=== PATIENT | female | born 1940 | race Caucasian/White ===

== ENCOUNTER → 2023-01-14 15:38 | Outpatient (BNVA) | payer OTHER, SELFPAY | PROVIDERS: PCP Pediatrics; Visit Provider Neurological Surgery ==

== ENCOUNTER → 2023-02-04 15:20 | Outpatient (BNVA) | payer OTHER, SELFPAY | PROVIDERS: PCP Pediatrics; Visit Provider Neurological Surgery ==

== ENCOUNTER 2024-02-18 15:16 | Outpatient (AMB) | payer OTHER, SELFPAY ==
--- NOTE | 2024-02-18 15:24 | A.OFFPC_ITS ---
Vital Signs 02/18/24 15:35 BMI Reason not done Patient refused/unable BP 130/68 Blood Pressure Location Lt brachial Position Sitting Respiration 12 Pulse 81 Pulse Source Pulse Oximeter Temp 98.1 F Temp Source Oral Pulse Oximetry (%) 95 Oxygen Delivery Method Room Air Intake Visit Reasons: Establish Care transfer from [facility] Allergies amiodarone Allergy (Severe, Verified 02/18/24 15:26) throat swelling latex [Latex] Allergy (Mild, Verified 02/04/23 15:34) HIVES,ITCHING hydromorphone [From Dilaudid] Adverse Reaction (Mild, Verified 02/04/23 15:34) DIZZY,NAUSEA,SWEATING,AGITATION nitroglycerin [Nitroglycerin] Adverse Reaction (Mild, Verified 02/04/23 15:34) LOW BP,DIZZY Tobacco use date assessed: 02/18/24 Fall risk assessment: No Falls in past year Last assessed Fall Risk: 02/18/24 Dental Screening Dental Screen Date: 02/18/24 Did you have a dental visit in the last 12 months?: Yes Did you have a dental problem in the last 6 months where you did not have access to dental care?: No Was dental information given to patient?: Patient has dentist HPI HPI Comments History of Present Illness Details This is an 83-year-old female with a past medical history of chronic pain, anxiety disorder, papillary thyroid carcinoma, hypothyroidism, insomnia, paroxysmal atrial fibrillation and depression presenting for transfer of care from [facility] primary [facility]. Her last PCP was Carolina Coronel PA-C. Pulmonary: The patient had COVID-19 at the end of October 2023. She reports ongoing respiratory symptoms since that time. She was seen by my colleague via telehealth on 11/04/2023. She was treated with Augmentin and albuterol as needed. She continued with symptoms. Patient had CT enterography on 11/17/2023 which showed scattered atelectasis with partial collapse of the right middle lobe of the lung. Follow up chest CT was ordered and completed 12/15/2023. This showed persistent atelectasis in the right middle lobe and associated volume loss and [id number] atelectasis and trace atelectasis of the lingula. No central obstructing lesion was apparent. There are also a few pulmonary nodules measuring up to 4 mm. Patient has never been a smoker, but she was exposed to secondhand smoke for much of her childhood and adolescence. She endorsed persistent cough that is productive sometimes and sometimes dry at her follow up visit on 12/17/2023 at [facility]. She denied hemoptysis. She endorsed shortness of breath associated with her cough, but she also notes that she has had a heart murmur for her entire life. She denied chest pain, syncope or dizziness. She reported feeling better than she did in October in terms of recovery from COVID. She reported no pets at home or significant exposures for pulmonary illness. I referred her to pulmonology urgently. In the [facility] records it is noted that she hung up on the person scheduling the call declining the initial appointment. Patient says she did this because of the appointment being scheduled too far off in early January. An appointment was then scheduled for yesterday, but she did not go to it. She says that she was going to see me today so she decided not to go to the [employer]. Patient says she did not have tuberculosis screening test that was ordered at [facility]. She continues to say that she is improving in terms of cough and shortness of breath. Chronic pain-she has a history of 3 back surgeries. She was previously on a co ntrolled substance contract with Dr. Ascencio at [facility]. Her PCP at [facility] restarted her medication. She also takes sulindac and Tylenol. She did not need refills today. She receives 70 tablets of oxycodone and 56 tablets of OxyContin per month. Endocrinology: Most recently seen by Dr. Bains at [facility]. Patient says that she did see an street superintendent at [facility] this past year who told her after blood work her cancer was back, but after further evaluation with Dr. Bains it was found that she did not have recurrent cancer. She would like to be seen at [facility] for endocrinology moving forward. History of paroxysmal atrial fibrillation-she had 1 episode after taking antibiotics and 1 after back surgery years ago. Seen by Cardiology. Denies palpitations and chest pain. She has a known heart murmur, and an echocardiogram was ordered at [facility], but she did not have it done because she decided to transfer here. Depression with anxiety-previously under the care of a therapist. Doing well with sertraline 100 mg and lorazepam as needed. She receives 40 tablets per month. She endorses chronic right hip pain with abduction and adduction. It bothers her a lot. The pain medications help somewhat. Patient says she has not seen orthopedics for this. She has seen Gastroenterology for evaluation of chronic abdominal pain and diarrhea going on for about the past 3 years. She reports having endoscopy, colonoscopy in [address] scans. She says ultimately they were not able to determine the cause of her symptoms. [facility] Medical History (Updated 02/19/24 @ 09:27 by GERALD Ferreira) Abnormal chest CT Heart murmur Chronic abdominal pain Right hip pain Fusion of lumbar spine Renal lesion Recurrent UTI Paroxysmal A-fib Osteoarthritis of hand Major depression, recurrent Lumbar radiculopathy Insomnia Hypothyroidism, postop Hx of papillary thyroid carcinoma Hx of compression fracture of spine Generalized anxiety disorder Esophageal abnormality Dark stools Chronic radicular lumbar pain Chronic prescription opiate use Chronic pain Chronic diarrhea Surgical History (Updated 02/18/24 @ 15:57 by Miranda Hansen CMA) History of bilateral knee replacement H/O vertebroplasty Hx of shoulder replacement Status post lumbar surgery Family History (Updated 02/18/24 @ 15:59 by Miranda Hansen CMA) Mother Congestive heart failure Father Cancer Brother Congestive heart failure Social History Housing: House Patient Tobacco Use Status: Never used Tobacco e-Cigarette/Vaping Use: Never Used Second Hand Smoke Exposure: No service: No Current occupational status: retired Cognitive needs: No Hearing needs: No Vision needs: No Questionnaire PHQ-9 Over the last 2 weeks, how often have you been bothered by any of the following problems? 1. Little interest or pleasure in doing things: more than half the days 2. Feeling down, depressed, or hopeless: more than half the days 3. Trouble falling or staying asleep, or sleeping too much: more than half the days 4. Feeling tired or having little energy: more than half the days 5. Poor appetite or overeating: not at all 6. Feeling bad about yourself - or that you are a failure or have let yourself or your family down: several days 7. Trouble concentrating on things, such as reading the newspaper or watching television: not at all 8. Moving or speaking so slowly that other people could have noticed. Or the opposite - being so fidgety or restless that you have been moving around a lot more than usual: not at all 9. Thoughts that you would be better off or of hurting yourself in some way: not at all Total score: 9 Depression Screening Interpretation: Positive Depression Screening Follow-up: Existing condition and In treatment Depression Screening Done: Yes 66230 - PHQ-9 Billing: Yes Source: Developed by Drs. Ethan Montesinos, Gracie Bautista, Ravinder Brooks and colleagues, with an educational sonali from '[employer]. Thrive Questionnaire Date Thrive assessed: 02/18/24 I am a: Patient What is your living situation today?: I have a steady place to live Within the past 12 months, did the food you bought not last and you didn't have the money to get more?: Never true Within the past 12 months, did you worry whether your food would run out before you got money to buy more?: Never true Do you have trouble paying for medicines?: No Do you have trouble getting transportation to medical appointments?: No Do you have trouble paying your heating and electricity bill?: No Do you have trouble taking care of your child, family member or friend?: No Do you have trouble with day-to-day activities such as bathing, preparing meals, shopping, managing finances, etc.?: No Are you currently unemployed and looking for a job?: No Are you interested in more education?: No Please select the resources that you would like help with: None Currently or been in a relationship where the following occur: no concerns reported THRIVE Score: 0 AUDIT C Alcohol Use Questionnaire (AUDIT-C) 1. How often do you have a drink containing alcohol?: Never 3. How often do you have six or more drinks on one occasion?: Never Total Score: 0 SHEILA-7 AMB Questionnaire SHEILA-7 Date SHEILA - 7 assessed: 02/18/24 Feeling nervous, anxious, or on edge: 3 = Nearly every day Not being able to stop or control worryin = More than half the days Worrying too much about different things: 2 = More than half the days Trouble relaxin = More than half the days Being so restless that it is hard to sit still: 0 = Not at all Becoming easily annoyed or irritable: 0 = Not at all Feeling afraid as if something awful might happen: 2 = More than half the days Total SHEILA-7 score (0-4 normal; 5-9 mild; 10-14 moderate; 15-21 severe): 11 Source: Developed by Drs. Ethan Montesinos, Gracie Bautista, Ravinder Brooks and colleagues, with an educational sonali from '[employer]. SHEILA-7 Assessment Billing SHEILA-7 Assessment Tool: SHEILA-7 Assessment 08743 Review of Systems Const Details: Constitutional: No fevers, chills or night sweats. No unexplained weight loss. Respiratory: See HPI. Cardiovascular: No chest pain, palpitations or pedal edema. Neurologic: No headache, dizziness, syncope Psychiatric: No SI/HI. Physical exam (Primary Care) Vital Signs: Last Vital Signs Temp 98.1 F 02/18/24 15:35 Pulse 81 02/18/24 15:35 Resp 12 02/18/24 15:35 BP 130/68 02/18/24 15:35 Pulse Ox 95 02/18/24 15:35 Oxygen Delivery Method Room Air 02/18/24 15:35 Tobacco/Smoking Status: Tobacco use Status Tobacco use date assessed 02/18/24 02/18/24 15:36 Patient Tobacco Use Status Never used Tobacco 02/18/24 15:36 e-Cigarette/Vaping Use Never Used 02/18/24 15:36 PHQ-9: PHQ-9 Score PHQ-9: Total score 9 02/18/24 17:23 Depression Screening Interpretation: Positive Depression Screening Follow-up: Existing condition and In treatment Thrive Assessment: Date of Thrive Assessment Date Thrive assessed 02/18/24 02/18/24 15:52 Currently or been in a relationship where the following occur: no concerns reported Const Other: Constitutional: Alert, in no distress. Head: Normocephalic. Neck: Supple, Full range of motion. No lymphadenopathy. No palpable masses. Respiratory: Clear to auscultation. Cardiovascular: S1 S2 regular. soft systolic murmur. Gastrointestinal: Abdomen soft, non-tender, non-distended. No palpable masses. Neurologic: No focal neurological deficits. Musculoskeletal: Right hip pain with ambulation, abduction, adduction. No hip crepitus on exam. Right anterior hip joint tender to palpation. Extremities: Warm and well perfused. No clubbing, cyanosis or edema. Psychiatric: Normal mood and affect Assessment and Plan Assessment & Plan (1) Hx of papillary thyroid carcinoma: Code(s): Z85.850 - Personal history of malignant neoplasm of thyroid Plan: No known recurrence. Referred [place] [facility] [place]-she wishes to transfer all care to [facility]. (2) Generalized anxiety disorder: Code(s): F41.1 - Generalized anxiety disorder Plan: Stable. Continue lorazepam as needed. (3) Major depression, recurrent: Code(s): F33.9 - Major depressive disorder, recurrent, unspecified Qualifiers: Active/Remission status: currently active Major depression episode severity: moderate Qualified Code(s): F33.1 - Major depressive disorder, recurrent, moderate Plan: Stable. Continue sertraline. Defers referral to therapy. (4) Right hip pain: Code(s): M25.551 - Pain in right hip Plan: X-ray ordered. Plan to refer to [facility] for further evaluation and treatment pending results. (5) Lumbar radiculopathy: Code(s): M54.16 - Radiculopathy, lumbar region Plan: Stable on medications. She will sign controlled substance contract and have a urine drug screen completed at next appointment. (6) Heart murmur: Code(s): R01.1 - Cardiac murmur, unspecified Plan: Echocardiogram reordered to be done within [facility]. (7) Abnormal chest CT: Code(s): R93.89 - Abnormal findings on diagnostic imaging of other specified body structures Plan: Findings may be related to the recent COVID-19 infection, but they were nonspecific and differential also listed non tuberculin Mycobacterium infection. I discussed that she should have kept the appointment with pulmonology, but now that she has established care here I will refer her anew for evaluation. She will also have blood work done-she wanted this done at [facility] so I provided printed orders. Orders: Orders Comprehensive Met. Panel 02/18/24 M48.061 - Spinal stenosis, lumbar region without neurogenic claudication, M51.36 - Other intervertebral disc degeneration, lumbar region, M81.0 - Age-related osteoporosis without current pathological fracture T Spot TB 02/18/24 R93.89 - Abnormal findings on diagnostic imaging of other specified body structures XR hip RT w PEL1V 02/18/24 M25.551 - Pain in right hip TSH reflex Free T4 02/18/24 E66.9 - Obesity, unspecified Complete Blood Count no Diff 02/18/24 E03.9 - Hypothyroidism, unspecified, R05.9 - Cough, unspecified CA echo transthoracic complete 02/18/24 R01.1 - Cardiac murmur, unspecified Referrals Pulmonology Referral R05.9 - Cough, unspecified, R93.89 - Abnormal findings on diagnostic imaging of other specified body structures Endocrinology Referral Z85.850 - Personal history of malignant neoplasm of thyroid Coding Level of Care Code Est Pt Level 5 (50443) Complex EM visit Add On G2211 Diagnoses Hx of papillary thyroid carcinoma Z85.850 Generalized anxiety disorder F41.1 Moderate episode of recurrent major depressive disorder F33.1 Active/Remission status: currently active Major depression episode severity: moderate Right hip pain M25.551 Lumbar radiculopathy M54.16 Heart murmur R01.[address] R93.89 Additional Codes SHEILA-7 Assessment Billing - SHEILA-7 Assessment Tool: SHEILA-7 Assessment 25740 ([id number]) Time Spent (min) 41 Comment 41 minutes spent reviewing record, updating chart and coordinating treatment
[2024-02-18 15:35] VITALS: BP 130/68; PULSE 81; RESP 12; TEMP 36.7; O2SAT 95
== END 2024-02-18 16:20 | disposition home or self-care (01) ==
PROVIDERS: PCP Physician Assistant Medical; Visit Provider Physician Assistant Medical
DX: R01.1 Cardiac murmur, unspecified (principal); F41.1 Generalized anxiety disorder; Z85.850 Personal history of malignant neoplasm of thyroid; F33.1 Major depressive disorder, recurrent, moderate; M25.551 Pain in right hip; M54.16 Radiculopathy, lumbar region; R93.89 Abnormal findings on diagnostic imaging of other specified body structures
CPT/HCPCS: 99215; G2211

== ENCOUNTER 2024-03-04 13:44 | Outpatient (REF) | payer OTHER, SELFPAY ==
[2024-03-04 17:31] LABS: Alanine Aminotransferase 13 U/L (0-31); Albumin Level 4.4 g/dL (3.5-5.0); Alkaline Phosphatase 78 U/L (39-117); Anion Gap 15 (12-20); Aspartate Amino Transferase 24 U/L (5-31); Bilirubin Total 0.4 mg/dL (0.0-1.0); Blood Urea Nitrogen 20 mg/dL (9-16); Calcium 9.6 mg/dL (8.4-10.2); Carbon Dioxide 23 mmol/L (22-29); Chloride 104 mmol/L (96-108); Estimated Glomerular Filt Rate > 60; Glucose Random 93 mg/dL (60-115); Potassium 4.1 mmol/L (3.3-5.1); Sodium 138 mmol/L (135-145); Total Protein 7.5 g/dL (6.5-8.0)
[2024-03-04 17:33] LABS: Hematocrit 44.9 % (37.0-47.0); Hemoglobin 15.1 g/dl (12.0-16.0); Mean Corpuscular HGB Conc 33.6 g/dl (31.0-35.0); Mean Corpuscular Hemoglobin 30.8 pg (27.0-33.0); Mean Corpuscular Volume 91.6 fL (80.0-98.0); Platelet Count 271 X10*3/uL (160-400); Red Cell Distribution Width 13.1 % (11.0-16.0); White Blood Count 5.1 X10*3/uL (4.8-10.8)
[2024-03-04 17:47] LABS: TSH reflex Free T4 0.88 uIU/mL (0.32-4.0)
[2024-03-06 21:13] LABS: TS Negative Control Passed; TS Panel A 2; TS Panel B 0; TS Positive Control Passed; TSpotTB Negative (Negative)
== END 2024-03-04 13:45 | disposition home or self-care (01) ==
LOC: HO.WFDLDS 13:44
PROVIDERS: Visit Provider Physician Assistant Medical
DX: E66.9 Obesity, unspecified (principal); M81.0 Age-related osteoporosis without current pathological fracture; M48.061 Spinal stenosis, lumbar region without neurogenic claudication; M51.36 Other intervertebral disc degeneration, lumbar region; R93.89 Abnormal findings on diagnostic imaging of other specified body structures; E03.9 Hypothyroidism, unspecified; R05.9 Cough, unspecified
CPT/HCPCS: 36415; 80053; 84443; 85027; 86481

== ENCOUNTER 2024-03-09 13:45 | Outpatient (AMB) | payer OTHER, SELFPAY ==
--- NOTE | 2024-03-09 13:49 | A.OFFVIS_ITS ---
Vital Signs 3 03/09/24 13:53 Height 5 ft 4 in Weight 149 lb 8 oz BMI 25.7 BP 130/78 Blood Pressure Location Rt brachial Position Sitting Pulse 82 Pulse Source Pulse Oximeter Pulse Oximetry (%) 93 Oxygen Delivery Method Room Air Intake Visit Reasons: Abnormal CT scan/Cough Allergies amiodarone Allergy (Severe, Verified 03/09/24 13:56) throat swelling latex [Latex] Allergy (Mild, Verified 03/09/24 13:56) HIVES,ITCHING nitroglycerin [Nitroglycerin] Adverse Reaction (Mild, Verified 03/09/24 13:56) LOW BP,DIZZY HPI HPI Abnormal CT scan/Cough: Details: Nandini is a pleasant 84 year old female, never smoker, with underlying atrial fibrillation, anxiety and h/o papillary thyroid carcinoma s/p thyroidectomy 2015. She was referred by PCP for persistent cough and abnormal chest CT. She reports having COVID towards the end of October with significant upper respiratory symptoms and fatigue, recovering at home. She was treated with augmentin and albuterol PRN. She notes the cough lasted until December and has completed resolved. She currently denies any respiratory symptoms. She denies any prior history of asthma or other respiratory conditions. She reports son with asthma, otherwise no pertinent family history. She denies any environmental allergies. She denies any occupational exposures. [facility] Medical History (Updated 03/11/24 @ 15:54 by Judi Bhatia NP) Abnormal chest CT Heart murmur Chronic abdominal pain Right hip pain Fusion of lumbar spine Renal lesion Recurrent UTI Paroxysmal A-fib Osteoarthritis of hand Major depression, recurrent Lumbar radiculopathy Insomnia Hypothyroidism, postop Hx of papillary thyroid carcinoma Hx of compression fracture of spine Generalized anxiety disorder Esophageal abnormality Dark stools Chronic radicular lumbar pain Chronic prescription opiate use Chronic pain Chronic diarrhea Surgical History (Updated 02/18/24 @ 15:57 by Miranda Hansen CMA) History of bilateral knee replacement H/O vertebroplasty Hx of shoulder replacement Status post lumbar surgery Family History (Updated 02/18/24 @ 15:59 by Miranda Hansen CMA) Mother Congestive heart failure Father Cancer Brother Congestive heart failure Social History Housing: House Patient Tobacco Use Status: Never used Tobacco e-Cigarette/Vaping Use: Never Used Second Hand Smoke Exposure: No service: No Current occupational status: retired Cognitive needs: No Hearing needs: No Vision needs: No Review of Systems Const Denies chills, Denies excessive sweating, Denies fever(s), Denies headache(s) and Denies night sweats Eyes Denies dry eyes, Denies irritation and Denies itchy eyes ENT Reports Normal hearing present, Denies headache(s), Denies nasal congestion, Denies nasal discharge, Denies post nasal drip and Denies sore throat Card Denies chest pain, Denies chest pain at rest, Denies chest pain with activity, Denies claudication, Denies leg edema, Denies dyspnea, Denies dyspnea on exertion, Denies orthopnea and Denies paroxysmal nocturnal dyspnea Resp Denies chest congestion, Denies cough, Denies excessive phlegm production, Denies pain on inspiration, Denies pain with cough, Denies dyspnea, Denies dyspnea on exertion, Denies stridor and Denies wheezing Musc Denies myalgias Neuro Reports Normal hearing present and Denies headache(s) Endo Denies excessive sweating Callum/Lymph Denies lymphadenopathy Aller/Immun Denies itchy eyes, Denies seasonal rhinorrhea and Denies wheezing Physical Exam Vital Signs: Last Vital Signs Pulse 82 03/09/24 13:53 BP 130/78 03/09/24 13:53 Pulse Ox 93 03/09/24 13:53 Oxygen Delivery Method Room Air 03/09/24 13:53 BMI result Body Mass Index 25.7 Const General: cooperative, healthy appearing, comfortable, no acute distress, well developed and alert Orientation/consciousness: patient oriented x3 Limitations: no limitations HEENT Head: Yes normal to inspection, Yes normocephalic and Yes atraumatic Ears: hearing grossly normal bilaterally and external ears normal Eyes General: appearance normal, both eyes and all related structures Eyelids: Yes eyelids normal Sclerae: sclerae normal EOM: EOMs intact bilaterally Neck Neck: Yes normal visual inspection and Yes no lymphadenopathy Lymphatic: no lymphadenopathy noted Chest Chest palpation & inspection: normal inspection of the chest Resp Effort & Inspection: normal respiratory effort, able to speak in complete sentences, no audible wheezes, no cough, no stridor, not tachypneic, no tripod positioning and no use of accessory muscles Auscultation: clear to auscultation bilaterally Cardio Jugular venous distension: no JVD Rate: regular rate Rhythm: regular rhythm Skin Other: warm, dry General skin exam: no rashes or lesions noted Neuro General: patient oriented x3 Cranial nerves: Yes Normal hearing present Cognition (Neuro): normal cognition Gait exam (Neuro): Normal gait present Extrem General: Yes normal to inspection, Yes capillary refill normal, Yes no clubbing, cyanosis or edema and Yes no pedal edema Psych Appearance: grossly normal and well kempt Speech and movement: Normal speech and movement present and Clear speech present Affect: normal affect Attitude: cooperative Thought process: Normal thought process present Thought content: Normal thought content present Insight: Good insight present (Psych) Judgement: Good judgement present (Psych) Results Reviewed Results Reviewed: Assessment & Plan Assessment & Plan (1) Abnormal chest CT: Code(s): R93.89 - Abnormal findings on diagnostic imaging of other specified body structures Category: Medical (2) Bronchiectasis: Code(s): J47.9 - Bronchiectasis, uncomplicated Category: Medical Plan Nandini presents for evaluation after she was sent for Chest CT for persistent cough. She notes that cough has resolved and currently denies any respiratory symptoms. At the time of the CT she was recovering from COVID. CT revealed multiple pulmonary nodules <4 mm, bronchiectasis and RML atelectasis with associated volume loss. These findings were nonspecific however nontuberculous mycobacterial infection in the differential. Will repeat chest CT to assess for resolution. Will attempt to obtain images from prior chest CT. All questions were answered and patient is in agreement of plan. Will follow up to review results or sooner if needed. Orders: Orders 2 CT chest wo IV con Today R93.89 - Abnormal findings on diagnostic imaging of other specified body structures Coding Level of Care Code New Pt Level 3 (14448) Diagnoses Abnormal chest CT R93.89 Bronchiectasis J47.9
[2024-03-09 13:53] VITALS: BP 130/78; PULSE 82; O2SAT 93; BMI 25.7
== END 2024-03-09 14:25 | disposition home or self-care (01) ==
PROVIDERS: PCP Physician Assistant Medical; Referring Provider Physician Assistant Medical; Visit Provider Nurse Practitioner Family
DX: R93.89 Abnormal findings on diagnostic imaging of other specified body structures (principal); J47.9 Bronchiectasis, uncomplicated
CPT/HCPCS: 99203

== ENCOUNTER → 2024-03-09 13:45 | Outpatient (BNVA) | payer OTHER, SELFPAY | PROVIDERS: PCP Physician Assistant Medical; Referring Provider Physician Assistant Medical; Visit Provider Nurse Practitioner Family ==

== ENCOUNTER 2024-04-12 15:00 | Outpatient (REF) | payer OTHER, SELFPAY ==
--- NOTE | ~2024-04-12 | CT_ITS ---
EXAMINATION: CT CHEST WITHOUT CONTRAST CLINICAL INFORMATION: Bronchiectasis, pulmonary nodules. COMPARISON: None available. TECHNIQUE: Multidetector volumetric CT imaging of the chest was done. Axial MIP volume rendering provided. Sagittal and coronal reformatted images were obtained. This CT examination was performed using dose optimization techniques as appropriate, variously including the following: *Automated exposure control *Adjustment of mA and/or kV according to patient size (this includes techniques or standardized protocols for targeted exams where dose is matched to indication/reason for exam; i.e. extremities or head) *Use of iterative reconstruction technique DLP: 103 mGy-cm FINDINGS: LUNGS: Mild multifocal cylindrical bronchiectasis, more noticeable in the right middle lobe where there is associated partial atelectasis. No dense consolidation or significant groundglass disease. Scattered intrabronchial filling defects are seen, most suggestive of mucous secretions. Otherwise, central airways are patent. A few bilateral solid up to for mm pulmonary nodules are seen, for example in the left apex (11:29 and 11:32), right middle lobe (image 11:138) and right lower lobe (11:103 and 11:112). MEDIASTINUM: Normal heart size. No pericardial effusion. Moderate atherosclerotic disease of the thoracic aorta which is of normal diameter. No mediastinal lymphadenopathy. Postoperative changes in the thyroid with prior right hemithyroidectomy. CORONARY ARTERY CALCIFICATION: Multivessel coronary artery calcifications are present. PLEURA: No pleural effusion or pneumothorax. No pleural based mass. AXILLA: No lymphadenopathy. UPPER ABDOMEN: Unremarkable. OSSEOUS STRUCTURES: Severe compression deformity at T9 with associated vertebroplasty and trace 2 mm of retropulsion, some of the cement is noted in the interdisc space. Moderate to severe compression deformity at T8. Partially seen compression deformity with associated vertebroplasty at L2. Multilevel thoracic spondylosis. Chronic appearing deformity of the inferior sternum (15:51). Partially seen bilateral shoulder arthroplasties. CT/CT chest wo IV con IMPRESSION: 1. Mild multifocal cylindrical bronchiectasis, more noticeable in the right middle lobe where there is associated partial atelectasis. 2. A few sub-4 mm solid pulmonary nodules. Recommend follow-up with CT chest in 3-6 months. 3. Age indeterminate multilevel compression deformities in the thoracolumbar spine, most likely subacute to chronic in view of the presence of associated vertebroplasty changes and lack of significant soft tissue swelling/hematoma. Recommend correlation with physical examination and prior surgical history. Fleischner guidelines were followed. Electronically signed by: Subha Parish MD 04/21/2024 09:13 AM EDT
--- NOTE | ~2024-04-12 | XR_ITS ---
EXAMINATION: XR HIP, RIGHT CLINICAL INFORMATION: Right hip pain. COMPARISON: None available. TECHNIQUE: AP view of the pelvis as well as AP and frog-leg lateral views of the right hip. FINDINGS: No acute fracture or dislocation. Moderate right and xdpylgeg-ca-aykxzb left central hip joint space narrowing. Small bilateral hip marginal osteophytes. No concerning lytic or blastic osseous lesion. No evidence of femoral head avascular necrosis. Lower lumbar spine orthopedic hardware without evidence of complication. Smyf-jg-umwwrzdc air and stool throughout the bowel. Right upper quadrant surgical clips. XR/XR hip RT w PEL1V IMPRESSION: Moderate right and gaiwjxpn-gr-bmflcm left hip osteoarthritis. Electronically signed by: Meet Santamaria MD 04/21/2024 09:00 AM EDT
== END 2024-04-12 15:01 | disposition home or self-care (01) ==
LOC: HO.CT 15:00
PROVIDERS: Visit Provider Nurse Practitioner Family
DX: R93.89 Abnormal findings on diagnostic imaging of other specified body structures (principal); M25.551 Pain in right hip
CPT/HCPCS: 71250; 73502

== ENCOUNTER 2024-05-05 14:25 | Outpatient (AMB) | payer OTHER, SELFPAY ==
--- NOTE | 2024-05-05 14:34 | MHC.PC.OV ---
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 Pulmonary: The patient had COVID-19 at the end of October 2023. She reported ongoing respiratory symptoms since that time. Patient had CT enterography on 11/17/2023 which showed scattered atelectasis with partial collapse of the right middle lobe of the lung. Follow up chest CT was ordered and completed 12/15/2023. This showed persistent atelectasis in the right middle lobe and associated volume loss and muxr-mf-tlzbstau atelectasis and trace atelectasis of the lingula. No central obstructing lesion was apparent. There are also a few pulmonary nodules measuring up to 4 mm. Patient has never been a smoker, but she was exposed to secondhand smoke for much of her childhood and adolescence. She endorsed persistent cough that is productive sometimes and sometimes dry at her follow up visit on 12/17/2023 at [facility]. She denied hemoptysis. She endorsed shortness of breath associated with her cough, but she also noted that she has had a heart murmur for her entire life. She denied chest pain, syncope or dizziness. She recently saw [facility] and chest CT was repeated, and they are going to continue monitoring with CT scans. Patient says her breathing finally feels good again. No cough, wheezing or shortness of breath. Chronic pain-she has a history of 3 back surgeries. She was previously on a controlled substance contract with Dr. Ascencio at [place]. Her PCP at [facility] restarted her medication. She also takes sulindac and Tylenol. She did not need refills today. She receives 70 tablets of oxycodone and 56 tablets of OxyContin per month. Endocrinology: Most recently seen by Dr. Bains at [facility]. Patient says that she did see an intensive care specialist at [facility] this past year who told her after blood work her cancer was back, but after further evaluation with Dr. Bains it was found that she did not have recurrent cancer. She wanted care transferred to [facility], and she has an upcoming appointment with endocrinology. History of paroxysmal atrial fibrillation-she had 1 episode after taking antibiotics and 1 after back surgery years ago. Seen by Cardiology. Denies palpitations and chest pain. She has a known heart murmur, and an echocardiogram was ordered at [facility], but she did not have it done because she decided to transfer here. This is scheduled. Depression with anxiety-previously under the care of a therapist. Doing well with sertraline 100 mg and lorazepam as needed. She receives 40 tablets per month. She had x-ray completed 4 chronic right hip pain which showed bilateral osteoarthritis. She has an upcoming appointment scheduled with [facility]. She does not get mammograms anymore citing her age. ROS: Constitutional: No unexplained weight loss, fever, chills, fatigue or night sweats. Respiratory: No shortness of breath, cough or sputum production. Cardiovascular: No chest pain, chest pressure or chest discomfort. No palpitations or pedal edema. Neurologic: No headache, dizziness, syncope Constitutional: Alert, in no distress. Head: Normocephalic. Respiratory: Clear to auscultation. Cardiovascular: S1 S2 regular. soft systolic murmur. Gastrointestinal: Abdomen soft, non-tender, non-distended. No palpable masses. Neurologic: No focal neurological deficits. Extremities: Warm and well perfused. No clubbing, cyanosis or edema. Psychiatric: Normal mood and affect [facility] Medical History (Updated 04/22/24 @ 08:40 by GERALD Ferreira) Bilateral primary osteoarthritis of hip Abnormal chest CT Heart murmur Chronic abdominal pain Right hip pain Fusion of lumbar spine Renal lesion Recurrent UTI Paroxysmal A-fib Osteoarthritis of hand Major depression, recurrent Lumbar radiculopathy Insomnia Hypothyroidism, postop Hx of papillary thyroid carcinoma Hx of compression fracture of spine Generalized anxiety disorder Esophageal abnormality Dark stools Chronic radicular lumbar pain Chronic prescription opiate use Chronic pain Chronic diarrhea Surgical History (Updated 02/18/24 @ 15:57 by Miranda Hansen CMA) History of bilateral knee replacement H/O vertebroplasty Hx of shoulder replacement Status post lumbar surgery Family History (Updated 02/18/24 @ 15:59 by Miranda Hansen CMA) Mother Congestive heart failure Father Cancer Brother Congestive heart failure Social History Housing: House Patient Tobacco Use Status: Never used Tobacco e-Cigarette/Vaping Use: Never Used Second Hand Smoke Exposure: No service: No Current occupational status: retired Cognitive needs: No Hearing needs: No Vision needs: No Questionnaire Thrive Questionnaire Date Thrive assessed: 02/18/24 SHEILA-7 AMB Questionnaire SHEILA-7 Date SHEILA - 7 assessed: 02/18/24 Source: Developed by Drs. Ethan Montesinos, Gracie Bautista, Ravinder Brooks and colleagues, with an educational sonali from [employer]. Physical exam (Primary Care) Vital Signs: Last Vital Signs Pulse 87 05/05/24 14:36 Resp 16 05/05/24 14:36 BP 102/62 05/05/24 14:36 Pulse Ox 95 05/05/24 14:36 Tobacco/Smoking Status: Tobacco use Status Tobacco use date assessed 02/18/24 05/05/24 14:39 Patient Tobacco Use Status Never used Tobacco 05/05/24 14:39 e-Cigarette/Vaping Use Never Used 05/05/24 14:39 Thrive Assessment: Date of Thrive Assessment Date Thrive assessed 02/18/24 05/05/24 14:39 Assessment and Plan Assessment & Plan (1) Hx of papillary thyroid carcinoma: Code(s): Z85.850 - Personal history of malignant neoplasm of thyroid Plan: No known recurrence. Referred to [facility] [place]-she wishes to transfer all care to [facility]. Appt is scheduled. (2) Generalized anxiety disorder: Code(s): F41.1 - Generalized anxiety disorder Plan: Stable. Continue lorazepam as needed. (3) Major depression, recurrent: Code(s): F33.9 - Major depressive disorder, recurrent, unspecified Qualifiers: Active/Remission status: currently active Major depression episode severity: moderate Qualified Code(s): F33.1 - Major depressive disorder, recurrent, moderate Plan: Stable. Continue sertraline. Defers referral to therapy. (4) Right hip pain: Code(s): M25.551 - Pain in right hip Plan: Patient schedule with [facility] with May. (5) Lumbar radiculopathy: Code(s): M54.16 - Radiculopathy, lumbar region Plan: Stable on medications. She will sign controlled substance contract and have a urine drug screen completed at next appointment. (6) Heart murmur: Code(s): R01.1 - Cardiac murmur, unspecified Plan: Echocardiogram scheduled in May at [facility]. (7) Abnormal chest CT: Code(s): R93.89 - Abnormal findings on diagnostic imaging of other specified body structures Plan: Pulmonology consult appreciated. She is following up with them regarding abnormal findings. She is happy that respiratory symptoms have since resolved. Plan Follow up in 3 months. Coding Level of Care Code Est Pt Level 4 (85726) Complex EM visit Add On G2211 Diagnoses Hx of papillary thyroid carcinoma Z85.850 Generalized anxiety disorder F41.1 Moderate episode of recurrent major depressive disorder F33.1 Active/Remission status: currently active Major depression episode severity: moderate Right hip pain M25.551 Lumbar radiculopathy M54.16 Heart murmur R01.[address] R93.89
[2024-05-05 14:36] VITALS: BP 102/62; PULSE 87; RESP 16; O2SAT 95
== END 2024-05-05 14:58 | disposition home or self-care (01) ==
PROVIDERS: PCP Physician Assistant Medical; Visit Provider Physician Assistant Medical
DX: Z85.850 Personal history of malignant neoplasm of thyroid (principal); F41.1 Generalized anxiety disorder; F33.1 Major depressive disorder, recurrent, moderate; M25.551 Pain in right hip; M54.16 Radiculopathy, lumbar region; R01.1 Cardiac murmur, unspecified; R93.89 Abnormal findings on diagnostic imaging of other specified body structures
CPT/HCPCS: 99214

== ENCOUNTER 2024-07-21 14:29 | Outpatient (AMB) | payer MEDICARE, SELFPAY ==
--- NOTE | 2024-07-21 14:31 | A.OFFPC_ITS ---
Vital Signs 07/21/24 14:34 Height 5 ft 4 in BMI Reason not done Patient refused/unable BP 98/64 Blood Pressure Location Rt brachial Position Sitting Pulse 94 Pulse Source Pulse Oximeter Pulse Oximetry (%) 97 Oxygen Delivery Method Room Air Intake Visit Reasons: Rsched from 06/27 - Abdominal Pain Intake Note: Abdominal pain follow up Equipment Maintenance Supervisor Required: No Allergies amiodarone Allergy (Severe, Verified 07/21/24 14:32) throat swelling latex [Latex] Allergy (Mild, Verified 07/21/24 14:32) HIVES,ITCHING nitroglycerin [Nitroglycerin] Adverse Reaction (Mild, Verified 07/21/24 14:32) LOW BP,DIZZY Tobacco use date assessed: 02/18/24 Dental Screening Dental Screen Date: 02/18/24 HPI HPI Comments History of Present Illness Details This is an 83-year-old female with a past medical history of chronic pain, anxiety disorder, papillary thyroid carcinoma, hypothyroidism, insomnia, paroxysmal atrial fibrillation and depression presenting for follow up. Chronic pain-she has a history of 3 back surgeries, bilateral knee replacements and shoulder surgery. She was previously on a controlled substance contract with Dr. Ascencio at [place], and her medications were continued at [facility] primary care before she transferred here. Current pain regimen: OxyContin 10 mg twice daily (56 tablets per 28 days) Oxycodone 5 mg 3 times a day as needed for breakthrough pain (70 tablets per 28 days) Sulindac 200 mg twice daily as needed for pain. She will supplement with acetaminophen as needed. She had hip x-rays completed on 04/12/2024 which showed moderate right and moderate to severe left hip osteoarthritis. She has chronic bilateral hip pain. Patient had a CT chest March 2024 which demonstrated age indeterminate multilevel compression deformities in the thoracolumbar spine. She has chronic middle and lower back pain. Her average pain level is 10/10 without medication. It has been somewhat of a ?nightmare? recently due to insurance issues with her medications. She ran out of OxyContin because of prior authorization needed to be processed. She supplemented with oxycodone while she was waiting on the OxyContin prescription which was eventually approved. She then supplemented with OxyContin when she ran out of the oxycodone. The pharmacy did dispense her OxyContin prescription on 07/18/2024, but she was only given 37 tablets. They told her there was an error in their computer system that they could not override. She is hoping that it will be refilled for her regular amount when she is due next. She continues to endorse severe pain in the right hip/groin that is worse when she abducts her leg. It is described as sharp when she moves and aching at all times. She feels it when she tries to get out of bed in the morning or get in and out of a car. The patient says it causes severe muscle spasms in her hip and buttock. It also is severely painful when she walks. She had to reschedule her appointment at [facility], and this is now in July. When it was originally evaluated it was thought to be due to a gastrointestinal issue, but she had a thorough evaluation with multiple CTs, colonoscopy and Gastroenterology appointments. Patient brought records of this which will be scanned to her chart. She also feels like both of her ears have been blocked up for the past few weeks. The left is worse than the right. There is no pain or dizziness. Depression with anxiety-previously under the care of a therapist. Doing well with sertraline 100 mg and lorazepam as needed. She receives 40 tablets per month. She did run out of it because again the insurance needed a prior authorization, but this was completed, and she received the refill. ROS: Constitutional: No fevers, chills or unexplained weight loss. Respiratory: No shortness of breath Cardiovascular: No chest pain Gastrointestinal: No vomiting, diarrhea or blood in stools. Genitourinary: No dysuria, hematuria, urinary frequency. Neurologic: No headache, dizziness, syncope Musculoskeletal: See HPI Hematologic/Lymphatics: No bleeding or bruising Skin: No rash Psychiatric: No SI/HI. Physical exam: Constitutional: Alert, in no distress. Respiratory: Clear to auscultation. Cardiovascular: S1 S2 regular. No murmurs. Ears: Bilateral brown cerumen in the canals. TMs not able to be visualized. Gastrointestinal: Abdomen soft, non-tender, non-distended. No palpable masses. Musculoskeletal: The right lateral hip and groin are very tender to palpation. She has severe pain with abduction of the right hip and internal rotation and moderate pain with abduction of the left hip. There is lateral tenderness of the left hip. Right hip strength 3/5, left hip strength 4/5. She can walk unassisted. Extremities: Warm and well perfused. No clubbing, cyanosis or edema. 3+ peripheral pulses bilaterally. Psychiatric: Normal mood and affect [facility] Medical History (Updated 07/22/24 @ 09:12 by GERALD Ferreira) Depression with anxiety DDD (degenerative disc disease), thoracolumbar Bilateral primary osteoarthritis of hip Abnormal chest CT Heart murmur Chronic abdominal pain Right hip pain Fusion of lumbar spine Renal lesion Recurrent UTI Paroxysmal A-fib Osteoarthritis of hand Major depression, recurrent Lumbar radiculopathy Insomnia Hypothyroidism, postop Hx of papillary thyroid carcinoma Hx of compression fracture of spine Generalized anxiety disorder Esophageal abnormality Dark stools Chronic radicular lumbar pain Chronic prescription opiate use Chronic pain Chronic diarrhea Surgical History History of bilateral knee replacement H/O vertebroplasty Hx of shoulder replacement Status post lumbar surgery Family History Mother Congestive heart failure Father Cancer Brother Congestive heart failure Social History (Updated 07/21/24 @ 14:39 by Miranda Hansen CMA) Housing: House Alcohol intake: former Patient Tobacco Use Status: Never used Tobacco e-Cigarette/Vaping Use: Never Used Second Hand Smoke Exposure: No service: No Current occupational status: retired Cognitive needs: No Hearing needs: No Vision needs: No Questionnaire Thrive Questionnaire Date Thrive assessed: 07/14/24 I am a: Patient What is your living situation today?: I have a steady place to live Within the past 12 months, did the food you bought not last and you didn't have the money to get more?: Never true Within the past 12 months, did you worry whether your food would run out before you got money to buy more?: Never true Do you have trouble paying for medicines?: No Do you have trouble getting transportation to medical appointments?: No Do you have trouble paying your heating and electricity bill?: No Do you have trouble taking care of your child, family member or friend?: No Do you have trouble with day-to-day activities such as bathing, preparing meals, shopping, managing finances, etc.?: I choose not to answer this question Are you currently unemployed and looking for a job?: No Are you interested in more education?: No Please select the resources that you would like help with: None Currently or been in a relationship where the following occur: No concerns reported THRIVE Score: 0 AUDIT C Alcohol Use Questionnaire (AUDIT-C) 1. How often do you have a drink containing alcohol?: Never 3. How often do you have six or more drinks on one occasion?: Never Total Score: 0 SHEILA-7 AMB Questionnaire SHEILA-7 Date SHEILA - 7 assessed: 02/18/24 Feeling nervous, anxious, or on edge: 3 = Nearly every day Not being able to stop or control worryin = Not at all Worrying too much about different things: 0 = Not at all Trouble relaxin = More than half the days Being so restless that it is hard to sit still: 0 = Not at all Becoming easily annoyed or irritable: 0 = Not at all Feeling afraid as if something awful might happen: 2 = More than half the days Total SHEILA-7 score (0-4 normal; 5-9 mild; 10-14 moderate; 15-21 severe): 7 Source: Developed by Drs. Ethan Montesinos, Gracie Bautista, Ravinder Brooks and colleagues, with an educational sonali from [employer]. Physical exam (Primary Care) Vital Signs: Last Vital Signs Pulse 94 07/21/24 14:34 BP 98/64 07/21/24 14:34 Pulse Ox 97 07/21/24 14:34 Oxygen Delivery Method Room Air 07/21/24 14:34 Tobacco/Smoking Status: Tobacco use Status Tobacco use date assessed 02/18/24 07/21/24 14:39 Patient Tobacco Use Status Never used Tobacco 07/21/24 14:39 e-Cigarette/Vaping Use Never Used 07/21/24 14:39 Thrive Assessment: Date of Thrive Assessment Date Thrive assessed 07/14/24 07/21/24 14:39 Currently or been in a relationship where the following occur: No concerns reported Coding Level of Care Code Est Pt Level 4 (40826) Complex EM visit Add On G2211 Diagnoses Bilateral primary osteoarthritis of hip M16.0 Right hip pain M25.551 Lumbar radiculopathy M54.16 DDD (degenerative disc disease), thoracolumbar M51.35 Depression with anxiety F41.8 Assessment & Plan Assessment & Plan (1) Bilateral primary osteoarthritis of hip: Code(s): M16.0 - Bilateral primary osteoarthritis of hip Category: Medical (2) Right hip pain: Code(s): M25.551 - Pain in right hip Category: Medical (3) Lumbar radiculopathy: Code(s): M54.16 - Radiculopathy, lumbar region Category: Medical (4) DDD (degenerative disc disease), thoracolumbar: Code(s): M51.35 - Other intervertebral disc degeneration, thoracolumbar region Category: Medical (5) Depression with anxiety: Code(s): F41.8 - Other specified anxiety disorders Category: Medical Plan The patient has chronic, multifactorial pain despite interventions in the past including physical therapy and multiple surgeries. I will continue her current medications for pain. Added Flexeril 5 mg at bedtime as needed for muscle spasms. Cautioned this can cause sedation and drowsiness and increased risk of falls. Do not drive or operate heavy machinery. Keep upcoming appointment with [facility]. She has known significant osteoarthritis in the bilateral hips which is not really alleviated with her regimen of for pain including NSAIDs and opioids. We will check MRI due to concern for internal derangement. Continue sertraline and lorazepam as needed for anxiety and depression. Patient instructed to use Debrox drops for 5 days and return for irrigation. Medications: New cyclobenzaprine 5 mg PO BEDTIME PRN 30 tabs 0RF muscle spasm carbamide peroxide 6.5% (Debrox) 5 drps otic (ears) Q12H 4 days 30 mL 0RF Patient Instructions: Use debrox for 5 days then return for ear flushing
[2024-07-21 14:34] VITALS: BP 98/64; PULSE 94; O2SAT 97
== END 2024-07-21 15:25 | disposition home or self-care (01) ==
PROVIDERS: PCP Physician Assistant Medical; Visit Provider Physician Assistant Medical
DX: M16.0 Bilateral primary osteoarthritis of hip (principal); M25.551 Pain in right hip; M54.16 Radiculopathy, lumbar region; M51.35 Other intervertebral disc degeneration, thoracolumbar region; F41.8 Other specified anxiety disorders

== ENCOUNTER → 2024-07-21 14:29 | Outpatient (BNVA) | payer MEDICARE, SELFPAY | PROVIDERS: PCP Physician Assistant Medical; Visit Provider Physician Assistant Medical | DX: M16.0 Bilateral primary osteoarthritis of hip (principal); M25.551 Pain in right hip; M54.16 Radiculopathy, lumbar region; M51.35 Other intervertebral disc degeneration, thoracolumbar region; R10.9 Unspecified abdominal pain; G89.29 Other chronic pain; F41.8 Other specified anxiety disorders | CPT/HCPCS: 99212 ==

== ENCOUNTER 2024-07-25 15:16 | Outpatient (AMB) | payer MEDICARE, SELFPAY ==
--- NOTE | 2024-07-25 15:32 | MHC.OFFVIS ---
Vital Signs 07/25/24 15:58 BP 138/84 Position Sitting Respiration 14 Intake Visit Reasons: 30 minute ear flush Allergies amiodarone Allergy (Severe, Verified 07/21/24 14:32) throat swelling latex [Latex] Allergy (Mild, Verified 07/21/24 14:32) HIVES,ITCHING nitroglycerin [Nitroglycerin] Adverse Reaction (Mild, Verified 07/21/24 14:32) LOW BP,DIZZY HPI Comments Details: This is an 83-year-old female with a past medical history of chronic pain, anxiety disorder, papillary thyroid carcinoma, hypothyroidism, insomnia, paroxysmal atrial fibrillation and depression presenting for cerumen removal. The patient used Debrox drops in both ears for the past 5 days. She denies ear pain. She can not hear well out of either ear. Patient also reported at the end of flushing today that she has UTI symptoms for 2 days. Endorses urinary frequency, malodorous urine and burning with urination. She has a history of UTIs. She denies fevers, chills, flank pain, nausea, vomiting. ROS: Constitutional: No fevers or chills ENT: No ear pain, sinus congestion, ear discharge Gastrointestinal: No nausea, vomiting or abdominal pain Genitourinary: See HPI Neurologic: No headache or dizziness Physical exam: Constitutional: Alert, in no distress. Head: Normocephalic. Ears: Bilateral ear canals occluded by brown wax. Neck: Supple, Full range of motion. No lymphadenopathy. Respiratory: Clear to auscultation. Cardiovascular: S1 S2 regular. No murmurs. Gastrointestinal: Abdomen soft, non-tender, non-distended. Normal bowel sounds. Genitourinary: No costovertebral angle tenderness. Psychiatric: Normal mood and affect [facility] Medical History (Updated 07/22/24 @ 09:12 by GERALD Ferreira) Depression with anxiety DDD (degenerative disc disease), thoracolumbar Bilateral primary osteoarthritis of hip Abnormal chest CT Heart murmur Chronic abdominal pain Right hip pain Fusion of lumbar spine Renal lesion Recurrent UTI Paroxysmal A-fib Osteoarthritis of hand Major depression, recurrent Lumbar radiculopathy Insomnia Hypothyroidism, postop Hx of papillary thyroid carcinoma Hx of compression fracture of spine Generalized anxiety disorder Esophageal abnormality Dark stools Chronic radicular lumbar pain Chronic prescription opiate use Chronic pain Chronic diarrhea Surgical History History of bilateral knee replacement H/O vertebroplasty Hx of shoulder replacement Status post lumbar surgery Family History Mother Congestive heart failure Father Cancer Brother Congestive heart failure Social History (Updated 07/21/24 @ 14:39 by Miranda Hansen CMA) Housing: House Alcohol intake: former Patient Tobacco Use Status: Never used Tobacco e-Cigarette/Vaping Use: Never Used Second Hand Smoke Exposure: No service: No Current occupational status: retired Cognitive needs: No Hearing needs: No Vision needs: No Physical Exam Vital Signs: Last Vital Signs BP 138/84 07/25/24 15:58 Office Procedures Cerumen Removal From which ear canal was the cerumen removed: bilateral Removal: irrigation Notes: patient tolerated procedure well [id number] Irrigation/Lavage Assessment & Plan Assessment & Plan (1) Bilateral impacted cerumen: Code(s): H61.23 - Impacted cerumen, bilateral Plan: Bilateral ear lavage attempted today. Successfully irrigated cerumen from right ear canal. There was erythema of the right ear canal noted on exam after which was likely due to the procedure. There was no edema. The tympanic membrane was intact following the procedure, and the patient tolerated the procedure well. She reported no dizziness or pain. Cerumen was irrigated from the left ear canal, but we were not able to completely irrigate the left ear. She will return tomorrow for a 2nd attempt. (2) UTI symptoms: Code(s): R39.9 - Unspecified symptoms and signs involving the genitourinary system Plan: Patient left today without providing urine sample, but she stated she would be able to provide sample tomorrow when she returns for completion of cerumen removal. Started empirically on Bactrim which she historically has tolerated well. Take with food and have probiotics. Increase fluids. Warning signs warranting ER evaluation reviewed. Orders: Orders Urine Culture Today R39.9 - Unspecified symptoms and signs involving the genitourinary system UA w Microscopic Today R39.9 - Unspecified symptoms and signs involving the genitourinary system AMB Cerumen Removal Today H61.23 - Impacted cerumen, bilateral Medications: New sulfamethoxazole-trimethoprim 800-160 mg (Bactrim DS) 1 tab PO BID 7 days 14 tabs 0RF Coding Level of Care Code Est Pt Level 3 (78360) Complex EM visit Add On G2211 Diagnoses Bilateral impacted cerumen H61.23 UTI symptoms R39.9 CPT Codes Office Procedure - CPT: 37277-Zae Irrigation/Lavage ([id number])
[2024-07-25 15:58] VITALS: BP 138/84; RESP 14
== END 2024-07-25 16:46 | disposition home or self-care (01) ==
PROVIDERS: PCP Physician Assistant Medical; Visit Provider Physician Assistant Medical
DX: R39.9 Unspecified symptoms and signs involving the genitourinary system (principal); H61.23 Impacted cerumen, bilateral

== ENCOUNTER → 2024-07-25 15:16 | Outpatient (BNVA) | payer MEDICARE, SELFPAY | PROVIDERS: PCP Physician Assistant Medical; Visit Provider Physician Assistant Medical | DX: H61.23 Impacted cerumen, bilateral (principal); R39.9 Unspecified symptoms and signs involving the genitourinary system | CPT/HCPCS: 69209; 99212 ==

== ENCOUNTER 2024-08-25 14:02 | Outpatient (AMB) | payer MEDICARE, SELFPAY ==
--- NOTE | 2024-08-25 14:07 | MHC.PC.OV ---
Vital Signs 08/25/24 14:10 Height 5 ft 4 in BMI Reason not done Patient refused/unable BP 142/76 H Blood Pressure Location Lt brachial Position Sitting Respiration 14 Pulse 95 Pulse Source Pulse Oximeter Pulse Oximetry (%) 96 Oxygen Delivery Method Room Air Intake Visit Reasons: med review/CSC Intake Note: follow up on med review [employer] Required: No Allergies amiodarone Allergy (Severe, Verified 08/25/24 14:07) throat swelling latex [Latex] Allergy (Mild, Verified 08/25/24 14:07) HIVES,ITCHING nitroglycerin [Nitroglycerin] Adverse Reaction (Mild, Verified 08/25/24 14:07) LOW BP,DIZZY Tobacco use date assessed: 02/18/24 Fall risk assessment: No Falls in past year Last assessed Fall Risk: 08/25/24 Dental Screening Dental Screen Date: 02/18/24 HPI HPI Comments History of Present Illness Details This is an 83-year-old female with a past medical history of chronic pain, anxiety disorder, papillary thyroid carcinoma, hypothyroidism, insomnia, paroxysmal atrial fibrillation and depression presenting for fatigue. The patient reports that she has not felt well for the last couple of weeks. She just feels fatigued and weaker. Since yesterday she started to feel better, but she is still not back to her baseline. She reports the only thing that helps her feel better was drinking orange juice. She wonders if she was possibly dehydrated. She does not have diabetes. She denies chest pain, shortness of breath, URI symptoms, UTI symptoms, vomiting or diarrhea. No blood in stools. She endorses chronic abdominal pain is at baseline. She has not noticed any fluid retention. ROS: Constitutional: No unexplained weight loss, fevers, chills or night sweats, +fatigue Eyes: No vision changes ENT: No ear pain, sneezing, congestion, runny nose or sore throat. Respiratory: No shortness of breath, cough or sputum production. Cardiovascular: No chest pain, chest pressure or chest discomfort. No palpitations or pedal edema. Gastrointestinal: No anorexia, nausea, vomiting or diarrhea. No blood in stool. +chronic abdominal pain Genitourinary: No dysuria, hematuria, urinary frequency. Neurologic: No headache, dizziness, syncope, unilateral weakness, ataxia, numbness or tingling in the extremities. Hematologic/Lymphatics: No bleeding or bruising. No painful lymph nodes. Skin: +chronic rash on upper back and arms for a year- improves with hydrocortisone Psychiatric: No increased depression or anxiety. Physical exam: Constitutional: Alert, in no distress. Neck: Supple, Full range of motion. No lymphadenopathy. Respiratory: Clear to auscultation. Cardiovascular: S1 S2 regular. No murmurs. Gastrointestinal: Abdomen soft, non-tender, non-distended. Normal bowel sounds. No palpable masses. Genitourinary: No costovertebral angle tenderness. Neurologic: No focal neurological deficits. Skin: There are small scars on the upper back and upper arms associated with a papular rash with the majority of lesions appearing excoriated with hemorrhagic crusts, no pustular points, warmth or swelling Musculoskeletal: No gross deformities. Normal range of motion. Extremities: Warm and well perfused. No clubbing, cyanosis or edema. 3+ peripheral pulses bilaterally PFSH Medical History (Updated 08/25/24 @ 14:37 by GERALD Ferreira) Chronic dermatitis Fatigue Depression with anxiety DDD (degenerative disc disease), thoracolumbar Bilateral primary osteoarthritis of hip Abnormal chest CT Heart murmur Chronic abdominal pain Right hip pain Fusion of lumbar spine Renal lesion Recurrent UTI Paroxysmal A-fib Osteoarthritis of hand Major depression, recurrent Lumbar radiculopathy Insomnia Hypothyroidism, postop Hx of papillary thyroid carcinoma Hx of compression fracture of spine Generalized anxiety disorder Esophageal abnormality Dark stools Chronic radicular lumbar pain Chronic prescription opiate use Chronic pain Chronic diarrhea Surgical History History of bilateral knee replacement H/O vertebroplasty Hx of shoulder replacement Status post lumbar surgery Family History Mother Congestive heart failure Father Cancer Brother Congestive heart failure Social History (Updated 07/21/24 @ 14:39 by Miranda Hansen CMA) Housing: House Alcohol intake: former Patient Tobacco Use Status: Never used Tobacco e-Cigarette/Vaping Use: Never Used Second Hand Smoke Exposure: No service: No Current occupational status: retired Cognitive needs: No Hearing needs: No Vision needs: No Questionnaire PHQ-9 Over the last 2 weeks, how often have you been bothered by any of the following problems? 76668 - PHQ-9 Billing: Patient declined-do not bill Source: Developed by Drs. Ethan Montesinos, Gracie Bautista, Ravinder Brooks and colleagues, with an educational sonali from [employer]. Thrive Questionnaire Date Thrive assessed: 08/25/24 I am a: Patient What is your living situation today?: I have a steady place to live Within the past 12 months, did the food you bought not last and you didn't have the money to get more?: Never true Within the past 12 months, did you worry whether your food would run out before you got money to buy more?: Never true Do you have trouble paying for medicines?: No Do you have trouble getting transportation to medical appointments?: No Do you have trouble paying your heating and electricity bill?: No Do you have trouble taking care of your child, family member or friend?: No Do you have trouble with day-to-day activities such as bathing, preparing meals, shopping, managing finances, etc.?: I choose not to answer this question Are you currently unemployed and looking for a job?: No Are you interested in more education?: No Please select the resources that you would like help with: None Currently or been in a relationship where the following occur: No concerns reported THRIVE Score: 0 SHEILA-7 AMB Questionnaire SHEILA-7 Date SHEILA - 7 assessed: 08/25/24 Feeling nervous, anxious, or on edge: 0 = Not at all Not being able to stop or control worryin = Not at all Worrying too much about different things: 0 = Not at all Trouble relaxin = Not at all Being so restless that it is hard to sit still: 0 = Not at all Becoming easily annoyed or irritable: 0 = Not at all Feeling afraid as if something awful might happen: 0 = Not at all Total SHEILA-7 score (0-4 normal; 5-9 mild; 10-14 moderate; 15-21 severe): 0 Source: Developed by Drs. Ethan Montesinos, Gracie Bautista, Ravinder Brooks and colleagues, with an educational sonali from [employer]. SHEILA-7 Assessment Billing SHEILA-7 Assessment Tool: SHEILA-7 Assessment 92612 Physical exam (Primary Care) Vital Signs: Last Vital Signs Pulse 95 08/25/24 14:10 Resp 14 08/25/24 14:10 BP 142/76 H 08/25/24 14:10 Pulse Ox 96 08/25/24 14:10 Oxygen Delivery Method Room Air 08/25/24 14:10 Tobacco/Smoking Status: Tobacco use Status Tobacco use date assessed 02/18/24 08/25/24 14:12 Patient Tobacco Use Status Never used Tobacco 08/25/24 14:12 e-Cigarette/Vaping Use Never Used 08/25/24 14:12 Thrive Assessment: Date of Thrive Assessment Date Thrive assessed 08/25/24 08/25/24 14:12 Currently or been in a relationship where the following occur: No concerns reported Office Procedures EKG Details: EKG shows normal sinus rhythm and a ventricular rate of 91 beats per minute 00863-Aituaiwusicaiplbp, Complete Coding Level of Care Code Est Pt Level 4 (79468) Complex EM visit Add On G2211 Diagnoses Fatigue R53.83 Chronic dermatitis L30.9 CPT Codes EKG - CPT: 70138-Hvoroagkdujhemvzw, Complete ([id number]) Additional Codes SHEILA-7 Assessment Billing - SHEILA-7 Assessment Tool: SHEILA-7 Assessment 82490 ([id number]) Assessment & Plan Assessment & Plan (1) Fatigue: Code(s): R53.83 - Other fatigue Category: Medical Plan: Patient is well-appearing today. Systolic blood pressure mildly elevated but vitals otherwise unremarkable. EKG today shows no evidence of arrhythmia or ischemic changes. Check urinalysis, culture and labs for fatigue. Stay well hydrated and eat 3 regular meals per day. Rest. Warning signs warranting ER evaluation reviewed. (2) Chronic dermatitis: Code(s): L30.9 - Dermatitis, unspecified Category: Medical Plan: Recurrent rash over the past year that improves with hydrocortisone use. Refer to dermatology. Plan Routine follow up in 3 months. Follow up for fatigue to be determined based on test results. Orders: Orders TSH reflex Free T4 Today R53.83 - Other fatigue Urine Culture Today R39.9 - Unspecified symptoms and signs involving the genitourinary system, R53.83 - Other fatigue AMB EKG-In Office Today R53.83 - Other fatigue Complete Blood Count Auto Diff Today R53.83 - Other fatigue Comprehensive Met. Panel Today R53.83 - Other fatigue Vitamin B12 Today R53.83 - Other fatigue, Z91.89 - Other specified personal risk factors, not elsewhere classified UA w Microscopic Today R39.9 - Unspecified symptoms and signs involving the genitourinary system, R53.83 - Other fatigue Vitamin D 1,25 dihydroxy Today R53.83 - Other fatigue
[2024-08-25 14:10] VITALS: BP 142/76; PULSE 95; RESP 14; O2SAT 96
== END 2024-08-25 14:50 | disposition home or self-care (01) ==
PROVIDERS: PCP Physician Assistant Medical; Visit Provider Physician Assistant Medical
DX: R53.83 Other fatigue (principal); L30.9 Dermatitis, unspecified

== ENCOUNTER → 2024-08-25 14:02 | Outpatient (BNVA) | payer MEDICARE, SELFPAY | PROVIDERS: PCP Physician Assistant Medical; Visit Provider Physician Assistant Medical | DX: R53.83 Other fatigue (principal); L30.9 Dermatitis, unspecified; F41.9 Anxiety disorder, unspecified | CPT/HCPCS: 93005; 96127; 99212 ==

== ENCOUNTER 2024-08-25 14:56 | Outpatient (REF) | payer MEDICARE, SELFPAY ==
[2024-08-25 17:28] LABS: MANUAL DIFF FLAG NO
[2024-08-25 17:34] LABS: Imm Gran Abs Auto 0.02 X10*3/uL (0.00-0.03); PLT CLUMP 1; SCAN SMEAR FLAG 1
[2024-08-25 17:36] LABS: Basophils Percent Auto 0.7 % (0-2); Eosinophils Absolute Auto 0.1 X10*3/uL (0.0-0.4); Eosinophils Percent Auto 1.4 % (0-4); Hematocrit 47.1 % (37.0-47.0); Imm Gran Pct Auto 0.3 % (0.0-0.4); Lymphocytes Absolute Auto 1.1 X10*3/uL (1.2-4.9); Lymphocytes Percent Auto 18.6 % (20-40); Mean Corpuscular Hemoglobin 30.3 pg (27.0-33.0); Mean Corpuscular Volume 89.2 fL (80.0-98.0); Mean Platelet Volume 11.7 fL (9.4-12.3); Monocytes Absolute Auto 0.4 X10*3/uL (0.1-1.2); Monocytes Percent Auto 7.4 % (2-11); Neutrophils Absolute Auto 4.2 x10*3/uL (2.0-8.3); Neutrophils Percent Auto 71.6 % (45-73); Red Blood Count 5.28 X10*6/uL (4.20-5.50); Red Cell Distribution Width 13.4 % (11.0-16.0)
[2024-08-25 17:49] LABS: Alanine Aminotransferase 19 U/L (0-31); Albumin Level 4.3 g/dL (3.5-5.0); Alkaline Phosphatase 76 U/L (39-117); Anion Gap 10 (12-20); Aspartate Amino Transferase 30 U/L (5-31); Bilirubin Total 0.3 mg/dL (0.0-1.0); Blood Urea Nitrogen 19 mg/dL (9-16); Calcium 9.6 mg/dL (8.4-10.2); Carbon Dioxide 27 mmol/L (22-29); Chloride 104 mmol/L (96-108); Estimated Glomerular Filt Rate > 60; Glucose Random 93 mg/dL (60-115); Potassium 4.4 mmol/L (3.3-5.1); Sodium 137 mmol/L (135-145); Total Protein 7.4 g/dL (6.5-8.0)
[2024-08-25 18:05] LABS: TSH reflex Free T4 5.12 uIU/mL (0.32-4.0)
[2024-08-25 18:12] LABS: Vitamin B12 1544 pg/mL (200-900)
[2024-08-25 18:16] LABS: Platelet Count 162 X10*3/uL (160-400); White Blood Count 5.9 X10*3/uL (4.8-10.8)
[2024-08-25 18:17] LABS: Appearance Urine Clear; Color Urine Yellow; Glucose Urine UA Negative (Negative); Leukocyte Esterase Urine Trace (Negative); Nitrite Urine Negative (Negative); Specific Gravity - Urine 1.015 (1.005-1.025); UMIC TRIGGER UA YES; Urine Blood Negative (Negative); Urine Ketones Negative (Negative); Urine Protein Negative (Neg-Trace)
[2024-08-25 18:24] LABS: Bacteria Urine None Seen (None Seen); Hyaline Casts Urine 0-2 /LPF (0-2); RBC Urine 0-2 /HPF (0-2); Squamous Epithelial Cell Urine 0-2 /HPF (0-2); WBC Urine 0-5 /HPF (0-5)
[2024-08-25 19:03] LABS: Free T4 (Free Thyroxine) 1.29 ng/dL (0.71-1.85)
[2024-08-28 13:49] LABS: VITAMIN D (1,25 OH) D3 37 pg/mL; Vit D (1,25-Dihydroxy) Total 37 pg/mL (18-72); Vitamin D (1,25 OH) D2 <8 pg/mL
== END 2024-08-25 14:57 | disposition home or self-care (01) ==
LOC: HO.WFDLDS 14:56
PROVIDERS: Visit Provider Physician Assistant Medical
DX: R39.9 Unspecified symptoms and signs involving the genitourinary system (principal); R53.83 Other fatigue; Z91.89 Other specified personal risk factors, not elsewhere classified
CPT/HCPCS: 36415; 80053; 81001; 82607; 82652; 84439; 84443; 85025; 87086

== ENCOUNTER 2024-11-10 11:49 | Outpatient (AMB) | payer MEDICARE, SELFPAY ==
--- NOTE | 2024-11-10 12:00 | MHC.PC.OV ---
Intake Visit Reasons: 30 minute ER follow up Intake Note: Emergency room follow up. Had MRI of the hip 10/27/24 Electric Utility Lineworker Required: No Allergies amiodarone Allergy (Severe, Verified 11/10/24 12:02) throat swelling latex [Latex] Allergy (Mild, Verified 11/10/24 12:02) HIVES,ITCHING nitroglycerin [Nitroglycerin] Adverse Reaction (Mild, Verified 11/10/24 12:02) LOW BP,DIZZY Medication List - Last Reconciled 11/10/24 by GERALD Ferreira calcium carb,lactat-vitamin D3 200 mg-6.25 mcg (250 unit) tabs PO DAILY levothyroxine 125 mcg PO DAILY lorazepam 0.5 mg PO BID PRN 30 days metronidazole 0.75% 1 appl topical BID multivitamin 1 tab PO DAILY oxycodone 5 mg PO TID PRN 28 days oxycodone ER (OxyContin) 10 mg PO Q12H sertraline 150 mg PO DAILY sulindac 200 mg PO BID Tobacco use date assessed: 02/18/24 Fall risk assessment: No Falls in past year Last assessed Fall Risk: 11/10/24 Dental Screening Dental Screen Date: 02/18/24 HPI HPI Comments History of Present Illness Details This is an 84-year-old female with a past medical history of chronic pain, anxiety disorder, papillary thyroid carcinoma, hypothyroidism, insomnia, paroxysmal atrial fibrillation and depression presenting for ER follow up. Patient was seen at the emergency department at [facility] on 09/26/2024 for 7-8 days of nausea, diarrhea, dark stools and generalized abdominal pain. She had a CT scan of the abdomen and pelvis which showed possible enteritis. Incidental findings included mild prominence of the biliary tree, likely reservoir effect from cholecystectomy, chronic atelectasis or scarring at lung bases, chronic fullness of right renal collecting system and a 1.4 cm left upper pole hypodensity stable since April 19, likely a hemorrhagic or proteinaceous cyst and degenerative changes in the lower back. She had reported chest pain which she attributes to anxiety. Reports this was treated with lorazepam and resolve. Troponin was flat. EKG was nonischemic. She was discharged home. Diarrhea has since resolved. Patient reports she has seen Urology for evaluation of the cyst, and no further treatment or evaluation was recommended. Chronic pain-she has a history of 3 back surgeries, bilateral knee replacements and shoulder surgery. She was previously on a controlled substance contract with Dr. Ascencio at [place], and her medications were continued at [facility] primary care before she transferred to [facility]. Current pain regimen: OxyContin 10 mg twice daily (56 tablets per 28 days) Oxycodone 5 mg 3 times a day as needed for breakthrough pain (70 tablets per 28 days) Sulindac 200 mg twice daily as needed for pain. She will supplement with acetaminophen as needed. She had hip x-rays completed on 04/12/2024 which showed moderate right and moderate to severe left hip osteoarthritis. She has chronic bilateral hip pain. Patient had a CT chest March 2024 which demonstrated age indeterminate multilevel compression deformities in the thoracolumbar spine. She has chronic middle and lower back pain. Her average pain level is 10/10 without medication. She had an MRI on 10/27/2024 of the right hip which demonstrated mild anterior superior acetabular chondrosis and no evidence of labral defect. Patient reports she has an appointment scheduled with new [facility] for evaluation, but right now she is prioritizing her lower back. She is going to see Dr. Hussein next week because her back pain has been getting worse. She continues to endorse severe pain in the right hip/groin that is worse when she abducts her leg. It is described as sharp when she moves and aching at all times. She feels it when she tries to get out of bed in the morning or get in and out of a car. It also is severely painful when she walks. Depression with anxiety-previously under the care of a therapist. Doing well with sertraline 100 mg and lorazepam as needed. She receives 40 tablets per month. She notices worsening anxiety and depression secondary to her chronic pain. ROS: Constitutional: No fevers, chills or unexplained weight loss. Respiratory: No shortness of breath Cardiovascular: No chest pain Gastrointestinal: No vomiting, diarrhea or blood in stools. No nausea or abdominal pain. Genitourinary: No dysuria, hematuria, urinary frequency. Neurologic: No headache, dizziness, syncope Musculoskeletal: See HPI Hematologic/Lymphatics: No bleeding or bruising Skin: No rash Psychiatric: No SI/HI. Physical exam: Constitutional: Alert, in no distress. Respiratory: Clear to auscultation. Cardiovascular: S1 S2 regular. No murmurs. Gastrointestinal: Abdomen soft, non-tender, non-distended. Musculoskeletal: The right lateral hip and groin are very tender to palpation. She has severe pain with abduction of the right hip and internal rotation and moderate pain with abduction of the left hip. There is lateral tenderness of the left hip. Right hip strength 3/5, left hip strength 4/5. She can walk unassisted, but her gait is antalgic. Her lower back and midline lumbosacral spine are tender to palpation. She has lumbosacral back pain with extension. No footdrop. Extremities: Warm and well perfused. No clubbing, cyanosis or edema. 3+ peripheral pulses bilaterally. Psychiatric: Normal mood and affect [facility] Medical History (Updated 11/10/24 @ 13:32 by GERALD Ferreira) Enteritis Chronic dermatitis Fatigue Depression with anxiety DDD (degenerative disc disease), thoracolumbar Bilateral primary osteoarthritis of hip Abnormal chest CT Heart murmur Chronic abdominal pain Right hip pain Fusion of lumbar spine Renal lesion Recurrent UTI Paroxysmal A-fib Osteoarthritis of hand Major depression, recurrent Lumbar radiculopathy Insomnia Hypothyroidism, postop Hx of papillary thyroid carcinoma Hx of compression fracture of spine Generalized anxiety disorder Esophageal abnormality Dark stools Chronic radicular lumbar pain Chronic prescription opiate use Chronic pain Chronic diarrhea Surgical History History of bilateral knee replacement H/O vertebroplasty Hx of shoulder replacement Status post lumbar surgery Family History Mother Congestive heart failure Father Cancer Brother Congestive heart failure Social History (Updated 07/21/24 @ 14:39 by Miranda Hansen CMA) Housing: House Alcohol intake: former Patient Tobacco Use Status: Never used Tobacco e-Cigarette/Vaping Use: Never Used Second Hand Smoke Exposure: No service: No Current occupational status: retired Cognitive needs: No Hearing needs: No Vision needs: No Questionnaire Thrive Questionnaire Date Thrive assessed: 07/14/24 I am a: Patient What is your living situation today?: I have a steady place to live Within the past 12 months, did the food you bought not last and you didn't have the money to get more?: Never true Within the past 12 months, did you worry whether your food would run out before you got money to buy more?: Never true Do you have trouble paying for medicines?: No Do you have trouble getting transportation to medical appointments?: No Do you have trouble paying your heating and electricity bill?: No Do you have trouble taking care of your child, family member or friend?: No Do you have trouble with day-to-day activities such as bathing, preparing meals, shopping, managing finances, etc.?: I choose not to answer this question Are you currently unemployed and looking for a job?: No Are you interested in more education?: No Please select the resources that you would like help with: None Currently or been in a relationship where the following occur: No concerns reported THRIVE Score: 0 SHEILA-7 AMB Questionnaire SHEILA-7 Date SHEILA - 7 assessed: 08/25/24 Source: Developed by Drs. Ethan Montesinos, Gracie Bautista, Ravinder Brooks and colleagues, with an educational sonali from [employer]. Physical exam (Primary Care) Tobacco/Smoking Status: Tobacco use Status Tobacco use date assessed 02/18/24 11/10/24 12:00 Patient Tobacco Use Status Never used Tobacco 11/10/24 12:00 e-Cigarette/Vaping Use Never Used 11/10/24 12:00 Thrive Assessment: Date of Thrive Assessment Date Thrive assessed 07/14/24 11/10/24 12:00 Currently or been in a relationship where the following occur: No concerns reported Coding Level of Care Code Est Pt Level 5 (79146) Complex EM visit Add On G2211 Diagnoses Bilateral primary osteoarthritis of hip M16.0 Right hip pain M25.551 Lumbar radiculopathy M54.16 DDD (degenerative disc disease), thoracolumbar M51.35 Depression with anxiety F41.8 Enteritis K52.9 Time Spent (min) 50 Comment Documentation review, direct patient care, completing documentation Assessment & Plan Assessment & Plan (1) Bilateral primary osteoarthritis of hip: Code(s): M16.0 - Bilateral primary osteoarthritis of hip Category: Medical (2) Right hip pain: Code(s): M25.551 - Pain in right hip Category: Medical (3) Lumbar radiculopathy: Code(s): M54.16 - Radiculopathy, lumbar region Category: Medical Plan: The patient has chronic, multifactorial pain despite interventions in the past including physical therapy and multiple surgeries. I will continue her current medications for pain. Keep upcoming appointment with [facility]. Controlled substance contract signed. (4) DDD (degenerative disc disease), thoracolumbar: Code(s): M51.35 - Other intervertebral disc degeneration, thoracolumbar region Category: Medical (5) Depression with anxiety: Code(s): F41.8 - Other specified anxiety disorders Category: Medical Plan: Increase symptoms due to chronic pain. Patient reports in the past she was on doses of sertraline up to 200 mg. We will increase to 150 mg daily. Side effects and black box warning reviewed. Continue lorazepam as needed for anxiety. Cautioned it is sedating and causes drowsiness and she should not drive or operate heavy machinery when she takes this medication. Controlled substance contract siged. (6) Enteritis: Code(s): K52.9 - Noninfective gastroenteritis and colitis, unspecified Category: Medical Plan: Symptoms resolved. Presumably this was a viral episode the patient notes she has had bouts of this in the past. She saw Gastroenterology and had endoscopy and colonoscopy. Monitor. Plan Follow up in 6 weeks for a med check. Medications: Changed From sertraline 100 mg PO DAILY 90 tabs 3RF To sertraline 150 mg PO DAILY
--- OUTSIDE RECORDS SUMMARY | 2024-11-10 15:16 | XMS_ITS | Encounter Summary ---
Author Organization [facility] Address [address] [place] [address] Care Team Providers Care Dustless Operator Name Role Phone Carolina Coronel Primary Care Provider [phone] Encounter Details Date Type Department Care Team (Late st Contact Info) Description 11/08/2024 Telephone Neurosurgery [facility] [address] [place] [address] [place], [place] Social History Tobacco Use Types Packs/Day Years Used Date Smoking Tobacco: Never Smokeless Tobacco: Never Alcohol Use Standard Drinks/Week Comments No 0 (1 standard drink = 0.6 oz pur e alcohol) Comments Unknown Sex and Gender Information Value Date Recorded Sex Assigned at Not on file Legal Sex Female 1:16 PM EST Gender Identity Not on file Sexual Orientation Not on file documented as of this encounter Progress Notes * GERALD Guerra - 11/09/2024 4:34 PM EDT I spoke to Ms. Castellanos. She is having trouble with low back and leg pain. I will put an order for x-rays. Please call her to schedule an appointment for her to come in for an evaluation. Please remind her to stop for x-rays on the way. * Patsy Magana - 11/09/2024 12:00 PM EDT Returned your call. * GERALD Guerra - 11/08/2024 5:07 PM EDT Called patient and left message. * Cindy Blackburn MA - 11/08/2024 9:01 AM EDT Patient having increased pain over the last few months, low back, difficulty walking and standing up straight, please call documented in this encounter Plan of Treatment Upcoming Encounters Date Type Department Care Team (Late st Contact Info) Description 11/16/2024 1:00 PM EDT Office Visit Neurosurgery [facility] [address] [place] [address] Chencho Hampton PA [address] [place] [address] Scheduled Orders Name Type Priority Associated Diagnoses Orde r Schedule XR Lumbar Spine 4+ Views Imaging Routine Chronic low back pain, unspecified back pain laterality, unspecified whether sciatica present Expected: 11/09/2024, Expires: 11/09/2025 documented as of this encounter Visit Diagnoses Diagnosis Chronic low back pain, unspecified back pain laterality, unspecified whether sciatica present- Primary documented in this encounter Care Teams Dustless Operator Relationship Specialty Start Date End Date aCrolina Coronel PA [address] [place] [id number] PCP - General 08/05/23 documented as of this encounter
--- OUTSIDE RECORDS SUMMARY | 2024-11-10 15:16 | XMS_ITS | Clinical Summary ---
Author Organization [facility] Address [address] [place] [address] Care Team Providers Care Psychiatric Clinician Name Role Phone Hayley Ascencio MD Primary Care Provider Social History Tobacco Use Types Packs/Day Years Used Date Smoking Tobacco: Never Assessed Sex and Gender Information Value Date Recorded Sex Assigned at Not on file Gender Identity Not on file Sexual Orientation Not on file Job Start Date Occupation Industry Not on file Not on file Not on file Plan of Treatment Health Maintenance Due Date Last Done Comments COVID-19 Vaccine (#1) 1940 Depression Screening 1951 Preventative Health Evaluation 1957 DTap / Tdap / Td (1 - Tdap) 1958 Fall Risk Assessment 02/24/2004 Osteoporosis Screening (DEXA Scan) 02/24/2004 RSV Adult > 60+ Yrs or (1 - 1-dose 75+ series) 2014 Shingrix-Zoster Vaccine (2 of 2) 07/26/2019 05/31/2019 Influenza Vaccine (#1) 2024 0, 05/31/2019, 06/04/2017, Additional history exists Pneumococcal Vaccine Completed 07/01/2016, 01/14/20 13 Hepatitis B Vaccines Aged Out No long er eligible based on patient's age to complete this topic RSV Ped < 20 months Aged Out No longe r eligible based on patient's age to complete this topic Care Teams Psychiatric Clinician Relationship Specialty Start Date End Date Hayley Ascencio MD PCP - General Internal Medicine 04/21/17
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
== END 2024-11-10 12:45 | disposition home or self-care (01) ==
LOC: HO.HMCFM 11:50
PROVIDERS: PCP Physician Assistant Medical; Visit Provider Physician Assistant Medical
DX: M16.0 Bilateral primary osteoarthritis of hip (principal); M25.551 Pain in right hip; M54.16 Radiculopathy, lumbar region; M51.35 Other intervertebral disc degeneration, thoracolumbar region; F41.8 Other specified anxiety disorders; K52.9 Noninfective gastroenteritis and colitis, unspecified

== ENCOUNTER → 2024-11-10 11:49 | Outpatient (BNVA) | payer MEDICARE, SELFPAY | PROVIDERS: PCP Physician Assistant Medical; Visit Provider Physician Assistant Medical | DX: G89.29 Other chronic pain (principal); F41.9 Anxiety disorder, unspecified; E78.5 Hyperlipidemia, unspecified; G47.00 Insomnia, unspecified; I48.0 Paroxysmal atrial fibrillation; F32.A Depression, unspecified; M16.0 Bilateral primary osteoarthritis of hip; M25.551 Pain in right hip; M54.16 Radiculopathy, lumbar region; M51.35 Other intervertebral disc degeneration, thoracolumbar region; F41.8 Other specified anxiety disorders; K52.9 Noninfective gastroenteritis and colitis, unspecified | CPT/HCPCS: 99212 ==

== ENCOUNTER 2024-11-23 14:08 | Outpatient (REF) | payer MEDICARE, SELFPAY ==
[2024-11-23 18:08] LABS: MANUAL DIFF FLAG NO
[2024-11-23 18:30] LABS: Basophils Absolute Auto 0.1 X10*3/uL (0.0-0.2); Basophils Percent Auto 0.6 % (0-2); Eosinophils Absolute Auto 0.1 X10*3/uL (0.0-0.4); Eosinophils Percent Auto 0.9 % (0-4); Hematocrit 44.9 % (37.0-47.0); Imm Gran Abs Auto 0.03 X10*3/uL (0.00-0.03); Imm Gran Pct Auto 0.4 % (0.0-0.4); Lymphocytes Absolute Auto 1.6 X10*3/uL (1.2-4.9); Lymphocytes Percent Auto 20.2 % (20-40); Mean Corpuscular HGB Conc 33.4 g/dl (31.0-35.0); Mean Corpuscular Hemoglobin 30.2 pg (27.0-33.0); Mean Corpuscular Volume 90.3 fL (80.0-98.0); Mean Platelet Volume 10.1 fL (9.4-12.3); Monocytes Absolute Auto 0.7 X10*3/uL (0.1-1.2); Monocytes Percent Auto 8.4 % (2-11); Neutrophils Absolute Auto 5.6 x10*3/uL (2.0-8.3); Neutrophils Percent Auto 69.5 % (45-73); Platelet Count 319 X10*3/uL (160-400); Red Blood Count 4.97 X10*6/uL (4.20-5.50); Red Cell Distribution Width 13.9 % (11.0-16.0); White Blood Count 8.1 X10*3/uL (4.8-10.8)
[2024-11-23 18:43] LABS: Alanine Aminotransferase 21 U/L (0-31); Albumin Level 4.5 g/dL (3.5-5.0); Anion Gap 13 (12-20); Aspartate Amino Transferase 32 U/L (5-31); Bilirubin Total 0.4 mg/dL (0.0-1.0); Blood Urea Nitrogen 17 mg/dL (9-16); C Reactive Protein 0.84 mg/dL (< or = 0.50); Calcium 9.5 mg/dL (8.4-10.2); Carbon Dioxide 23 mmol/L (22-29); Chloride 98 mmol/L (96-108); Estimated Glomerular Filt Rate > 60; Glucose Random 101 mg/dL (60-115); Potassium 4.3 mmol/L (3.3-5.1); Sodium 130 mmol/L (135-145); Total Protein 7.5 g/dL (6.5-8.0)
[2024-11-23 18:57] LABS: Alkaline Phosphatase 84 U/L (39-117)
[2024-11-23 19:14] LABS: Erythrocyte Sedimentation Rate 11 MM/HR (0-20)
[2024-11-24 20:58] LABS: Transglutaminase Ab IgG 1.4 U/mL
[2024-11-24 22:53] LABS: Immunoglobulin A 119 mg/dL (70-320)
[2024-11-26 22:49] LABS: Endomysial IgA Antibody Negative (Negative)
== END 2024-11-23 14:09 | disposition home or self-care (01) ==
LOC: HO.WFDLDS 14:08
PROVIDERS: PCP Physician Assistant Medical; Visit Provider Physician Assistant
DX: R19.7 Diarrhea, unspecified (principal); R10.9 Unspecified abdominal pain; G89.29 Other chronic pain
CPT/HCPCS: 36415; 80053; 82784; 85025; 85652; 86140; 86231; 86364; 99212

== ENCOUNTER 2024-11-23 14:08 | Outpatient (AMB) | payer MEDICARE, SELFPAY ==
--- NOTE | 2024-11-23 14:24 | A.OFFPC_ITS ---
Vital Signs 11/23/24 14:31 BMI Reason not done Patient refused/unable BP 128/76 Blood Pressure Location Rt brachial Position Sitting Respiration 14 Pulse 84 Pulse Source Pulse Oximeter Pulse Oximetry (%) 95 Oxygen Delivery Method Room Air Intake Visit Reasons: Abdominal pain/diarrhea Intake Note: Abdominal pain and diarrhea ongoing. Normally has flare ups. The pain is worse now. Him Clerk Required: No Allergies amiodarone Allergy (Severe, Verified 11/23/24 14:27) throat swelling latex [Latex] Allergy (Mild, Verified 11/23/24 14:27) HIVES,ITCHING nitroglycerin [Nitroglycerin] Adverse Reaction (Mild, Verified 11/23/24 14:27) LOW BP,DIZZY Medication List - Last Reconciled 11/23/24 by Carolina Coronel PA-C calcium carb,lactat-vitamin D3 200 mg-6.25 mcg (250 unit) tabs PO DAILY levothyroxine 125 mcg PO DAILY lorazepam 0.5 mg PO BID PRN 30 days metronidazole 0.75% 1 appl topical BID multivitamin 1 tab PO DAILY oxycodone 5 mg PO TID PRN 28 days oxycodone ER (OxyContin) 10 mg PO Q12H sertraline 150 mg PO DAILY sulindac 200 mg PO BID Tobacco use date assessed: 02/18/24 Dental Screening Dental Screen Date: 02/18/24 HPI Abdominal pain/diarrhea HPI Details This is an 84-year-old female with a past medical history of chronic pain, anxiety disorder, papillary thyroid carcinoma, hypothyroidism, insomnia, paroxysmal atrial fibrillation and depression presenting for an acute problem visit regarding ongoing abdominal pain. Has a hx of chronic abdominal pain and states that this is exacerbated for the last 6 months. She states that she has gone to the ER a couple times for this and most recently went in October. She had a CT scan of the abdomen and pelvis which showed possible enteritis. Incidental findings included mild prominence of the biliary tree, likely reservoir effect from cholecystectomy, chronic atelectasis or scarring at lung bases, chronic fullness of right renal collecting system and a 1.4 cm left upper pole hypodensity stable since April 19, likely a hemorrhagic or proteinaceous cyst and degenerative changes in the lower back. She states that it was frustrating because the pain is in her lower abdomen and while she has had chronic abdominal pain before this is a little different in it feels like she is straining to push around and internal mass. She states that she is getting diarrhea multiple times a day for the last 6 months. No weight loss with this. Her diet is now very limited by the diarrhea and abdominal p ain. She states that she has a lot of toast and very bland food items. She denies any urinary symptoms. She has been on antibiotics for intermittent dental infections and just completed amoxicillin. No recent travel or sick contacts with similar symptoms. No fevers or chills. She states that her chronic abdominal pain she believes is related to her back and she is going to be seeing Neurosurgery soon but this pain she thinks it is coming from her abdomen. She has seen GI in the past for abdominal pain but not this kind. No blood in the stool or urine. [facility] Medical History (Updated 11/23/24 @ 14:54 by Carolina Coronel PA-C) Enteritis Chronic dermatitis Fatigue Depression with anxiety DDD (degenerative disc disease), thoracolumbar Bilateral primary osteoarthritis of hip Abnormal chest CT Heart murmur Chronic abdominal pain Right hip pain Fusion of lumbar spine Renal lesion Recurrent UTI Paroxysmal A-fib Osteoarthritis of hand Major depression, recurrent Lumbar radiculopathy Insomnia Hypothyroidism, postop Hx of papillary thyroid carcinoma Hx of compression fracture of spine Generalized anxiety disorder Esophageal abnormality Dark stools Chronic radicular lumbar pain Chronic prescription opiate use Chronic pain Chronic diarrhea Surgical History History of bilateral knee replacement H/O vertebroplasty Hx of shoulder replacement Status post lumbar surgery Family History Mother Congestive heart failure Father Cancer Brother Congestive heart failure Social History (Updated 11/10/24 @ 13:10 by Miranda Hansen CMA) Housing: House Alcohol intake: former Patient Tobacco Use Status: Never used Tobacco e-Cigarette/Vaping Use: Never Used Second Hand Smoke Exposure: No service: No Current occupational status: retired Cognitive needs: No Hearing needs: No Vision needs: No Questionnaire Thrive Questionnaire Date Thrive assessed: 11/23/24 SHEILA-7 AMB Questionnaire SHEILA-7 Date SHEILA - 7 assessed: 08/25/24 Source: Developed by Drs. Ethan Montesinos, Gracie Bautista, Ravinder Brooks and colleagues, with an educational sonali from [employer]. Physical exam (Primary Care) Vital Signs: Last Vital Signs Pulse 84 11/23/24 14:31 Resp 14 11/23/24 14:31 BP 128/76 11/23/24 14:31 Pulse Ox 95 11/23/24 14:31 Oxygen Delivery Method Room Air 11/23/24 14:31 Tobacco/Smoking Status: Tobacco use Status Tobacco use date assessed 02/18/24 11/23/24 14:26 Patient Tobacco Use Status Never used Tobacco 11/23/24 14:26 e-Cigarette/Vaping Use Never Used 11/23/24 14:26 Thrive Assessment: Date of Thrive Assessment Date Thrive assessed 11/23/24 11/23/24 14:26 Const Orientation/consciousness: patient oriented x3 HENMT Ears: hearing grossly normal bilaterally Neck Thyroid: Thyroid normal Lymphatic: no lymphadenopathy noted Resp Auscultation: clear to auscultation bilaterally Cardio Rate: regular rate Rhythm: regular rhythm Heart sounds: S1 normal heart sound present and S2 normal heart sound present GI Other: No guarding Inspection: Yes normal to inspection Palpation (GI): Soft to palpation, Tenderness to palpation present (GI) in the LLQ, in the RLQ and suprapubicly; with no rebound tenderness and No Rebound tenderness present Auscultation: normoactive bowel sounds Rectal Exam - Female: deferred Skin General skin exam: no rashes or lesions noted Neuro General: patient oriented x3, gait normal and no focal motor deficits Coding Level of Care Code Est Pt Level 4 (16396) Complex EM visit Add On G2211 Diagnoses Chronic abdominal pain R10.9; G89.29 Diarrhea R19.7 Assessment & Plan Assessment & Plan (1) Chronic abdominal pain: Code(s): R10.9 - Unspecified abdominal pain; G89.29 - Other chronic pain Category: Medical Plan: I have referred her back to GI. She did have a recent CT of the abdomen and pel vis this has been going on for the last 6 months. She does not have an acute abdomen here today in the office. We reviewed signs and symptoms that would require emergent medical treatment including increased abdominal pain, fever, nausea or vomiting. Advised that she should go to the hospital she develops any changes. (2) Diarrhea: Code(s): R19.7 - Diarrhea, unspecified Category: Medical Plan: Labs and stool studies ordered. I have referred her to GI. I have advised her to maintain hydration. Advised short term follow up in 1-2 weeks to be reassessed by PCP. She will follow up sooner if needed. Patient understands and agrees with the plan. Orders: Orders Complete Blood Count Auto Diff 11/23/24 - Other chronic pain, R10.9 - Unspecified abdominal pain, R19.7 - Diarrhea, unspecified OBSX3 11/23/24 - Other chronic pain, R10.9 - Unspecified abdominal pain, R19.7 - Diarrhea, unspecified Endomysial IgA rflx Titer 11/23/24 - Other chronic pain, R10.9 - Unspecified abdominal pain, R19.7 - Diarrhea, unspecified Immunoglobulin A 11/23/24 - Other chronic pain, R10.9 - Unspecified abdominal pain, R19.7 - Diarrhea, unspecified Comprehensive Met. Panel 11/23/24 - Other chronic pain, R10.9 - Unspecified abdominal pain, R19.7 - Diarrhea, unspecified Erythrocyte Sedimentation Rate 11/23/24 - Other chronic pain, R10.9 - Unspecified abdominal pain, R19.7 - Diarrhea, unspecified Fecal Fat Qualitative 11/23/24 - Other chronic pain, R10.9 - Unspecified abdominal pain, R19.7 - Diarrhea, unspecified C Reactive Protein 11/23/24 - Other chronic pain, R10.9 - Unspecified abdominal pain, R19.7 - Diarrhea, unspecified Calprotectin, Fecal 11/23/24 - Other chronic pain, R10.9 - Unspecified abdominal pain, R19.7 - Diarrhea, unspecified Transglutaminase Ab IgG 11/23/24 - Other chronic pain, R10.9 - Unspecified abdominal pain, R19.7 - Diarrhea, unspecified CDiff Gene PCR 11/23/24 - Other chronic pain, R10.9 - Unspecified abdominal pain, R19.7 - Diarrhea, unspecified Referrals Gastroenterology Referral - Other chronic pain, R10.9 - Unspecified abdominal pain, R19.7 - Diarrhea, unspecified
[2024-11-23 14:31] VITALS: BP 128/76; PULSE 84; RESP 14; O2SAT 95
--- OUTSIDE RECORDS SUMMARY | 2024-11-23 17:00 | XMS_ITS | Clinical Summary ---
Author Organization 175 [facility] Address [address] [place] [address] Phone Care Team Providers Care Signal Circuit Designer Name Role Phone Carolina Coronel Primary Care Provider [phone] Allergies Active Allergy Reactions Criticality Noted Date Comments Amiodarone Swelling 05/13/2016 Other Reaction(s): Anaphelaxis Other reaction(s): Anaphelaxis Ciprofloxacin Hcl Weakness 09/29/2012 Other Reaction(s): Myalgia and Joint Pain Other reaction(s): Muscle weakness, Myalgia and Joint Pain Gabapentin Nausea And Vomiting 05/09/2009 Other Reaction(s): shakes, dizzy, numbness Other reaction(s): shakes, dizzy, numbness Hydroxyzine 03/07/2022 Latex Itching,Rash,Wheezi ng High 09/25/2008 Other Reaction(s): hives, blisters, Rash/Dermatitis Metoprolol Itching 07/01/2016 Nitroglycerin Headache,Low blood pressure High 09/25/2008 Other Reaction(s): low bp, OTHER blood pressure bottomed out dizziness Other reaction(s): Headaches, OTHER blood pressure bottomed out dizziness Tramadol 06/21/2012 Other Reaction(s): takes sertraline Reaction to a current medication Other reaction(s): takes sertraline CONTRAINDICATION PATIENT ON ZOLOFT Reaction to a current medication CONTRAINDICATION PATIENT ON ZOLOFT Medications albuterol HFA (PROAIR HFA ; PROVENTIL HFA ; VENTOLIN HFA) 90 mcg/actuation inhaler INHALE 1 PUFF BY MOUTH FOUR TIMES DAILY NEEDED FOR WHEEZING 4 Active dicyclomine (BENTYL) 10 mg capsule TAKE 1 CAPSULE BY MOUTH FOUR TIMES DAILY TAKE NEEDED UP TO 4 TIMES PER DAY NEEDED FOR PAIN / SPASM 4 Active levothyroxine (SYNTHROID, LEVOTHROID) 125 mcg tablet Take 1 tablet (125 mcg total) by mouth 1 (one) time each day. Active LORazepam (ATIVAN) 0.5 mg tablet TAKE 1 TABLET BY MOUTH TWICE DAILY NEEDED FOR ANXIETY FOR 30 DAYS 5 Active oxyCODONE (ROXICODONE) 5 mg immediate release tablet TAKE 1 TABLET BY MOUTH THREE TIMES DAILY NEEDED FOR PAIN FOR 28 DAYS 5 Active OxyCONTIN 10 mg 12 hr abuse-deterrent tablet 5 Active metroNIDAZOLE (METROCREAM) 0.75 % cream Apply 1 Application topically 2 (two) times a day. apply to the affected area(s) 5 Active sertraline (ZOLOFT) 100 mg tablet Take 1 tablet (100 mg total) by mouth 1 (one) time each day. 5 Active sulindac (CLINORIL) 200 mg tablet Take 1 tablet (200 mg total) by mouth 2 (two) times a day. 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 She status post L3-S1 fusion by Dr. Fairchild in the distant past. She has not had any recent conservative treatment. Jalyn send her for some x-rays to make sure she is not unstable above her fusion construct. If the x-rays look okay we will send her to physical therapy. She will follow-up with us in about 6 weeks for repeat evaluation. Pulmonary embolism 03/24/2023 A-fib 03/24/2023 Overview (11/16/2024): RAPID Status post total knee replacement 01/05/2023 Overview (11/16/2024): needs antibiotics prior to dental work. Lumbar radiculopathy 01/05/2023 Compression fracture of L4 vertebra 04/18/2016 Overview (11/16/2024): Dr. FAIRCHILD Disorder of shoulder 12/19/2014 PTSD (post-traumatic stress disorder) 10/04/2013 Depression, major 10/04/2013 Encounters Date Type Department Care Team Description 11/08/2024 Telephone Neurosurgery [facility] [address] [facility] [address] [place] [address] Cindy Blackburn MA from Last 3 Months Immunizations Name Administration Dates Next Due Influenza trivalent, 0.5mL ( Fluad) 65yo and older 06/04/2017 Influenza trivalent, with pr eservative (Fluzone; Afluria) 6mo and older 06/10/2022,08/07/2021,05/24/2020,05/31,07/01/2016,06/21/2012,06/17/2010 ,07/13/2006 Pneumococcal conjugate 13 va lent (Prevnar 13, PCV13) 2mo and older 07/01/2016 Pneumococcal polysaccharide 23 valent (Pneumovax 23) 2yo and older 01/13/2013,07/13/2006 Td, Unspecified 12/11/2019,01/13/2013,05/13/2006 Tdap Tetanus diptheria acell ular pertussis (Boostrix; Adacel) 7yo and older 12/11/2019 Zoster Live 06/16/2014 Zoster recombinant (Shingrix ) 19yo and older 05/31/2019 Surgical History Surgery Date Site/Laterality Comments TONSILLECTOMY [...] Left L4-L5 OTHER SURGICAL HISTORY 1990 PROCEDURE: [place] ANES TRANSURETHRAL W/URETHROCYSTOSCOPY NOS; COMMENT: vesicourethroexy- Dr. Holbrook OTHER SURGICAL HISTORY 1969 PROCEDURE: [place] BSO W/OMENTECTOMY TRINA&RAD DEBULKING DISSECTION; COMMENT: Right salphingo-oophorectomy, lysis of adhesions OTHER SURGICAL HISTORY 1965 PROCEDURE: HISTORICAL TOTAL HYSTERECTOMY W/O BSO; COMMENT: total wtih Left salpingo-oophorectomy, lysis of adhesions APPENDECTOMY 1965 PROCEDURE: HISTORICAL APPENDECTOMY; COMMENT: Dr. Thomas Jauregui ROTATOR CUFF REPAIR [id number] PROCEDURE: HISTORICAL ROTATOR CUFF REPAIR; COMMENT: Left shoulder Dr Rojo OTHER SURGICAL HISTORY 07/21/13 PROCEDURE: [place] ARTHROPLASTY GLENOHUMERAL JOINT TOTAL SHOULDER; COMMENT: Left Dr Rojo SHOULDER SURGERY [id number] Right PROCEDURE: HISTORICAL SHOULDER SURGERY; COMMENT: Dr Rojo- R shoulder arthroplasty BACK SURGERY [id number] PROCEDURE: HISTORICAL BACK SURGERY; COMMENT: Exploration of l4-s1 fusion with l3-l4 posterior deompression. BACK SURGERY 05/14/16 PROCEDURE: HISTORICAL BACK SURGERY; COMMENT: Exploration of l3-l4 fusion with l4 kyphoplasty and l3to s1 segmental fixation BREAST BIOPSY PROCEDURE: BX BREAST; PERC NEEDLE CORE W/IMAG GUID; COMMENT: lt. breast [id number] cyst COLONOSCOPY PROCEDURE: HISTORICAL COLONOSCOPY CHOLECYSTECTOMY PROCEDURE: [place] LAPAROSCOPY SURG CHOLECYSTECTOMY APPENDECTOMY PROCEDURE: [place] APPENDECTOMY HYSTERECTOMY PROCEDURE: HISTORICAL HYSTERECTOMY Medical History [...] of L 4 lumbar vertebra; COMMENT: Dr. FAIRCHILD A-fib ([facility]) DX:A-fib (HCC) Personal history of malignan t neoplasm of [...] Care Team (Late st Contact Info) Description 12/07/2024 2:00 PM EDT Office Visit Neurosurgery [facility] [address] [place] [address] Chencho Hampton PA [address] [place] [address] Health Maintenance Due Date Last Done Comments [...] has a prior history of fracture. The [facility] Department of Internal Medicine recommends using National [...] patient has a prior history offracture. The [facility] Department of Internal Medicine recommendsusing National Osteoporosis [...] fracture risk by FRAX. Hayley Ascencio MD IM DXA PROCEDURES Bibi l Result from Last 3 Months or Most Recently Relevant to Health Maintenance Insurance [facility] MEDICARE Care Teams Signal Circuit Designer Relationship Specialty Start Date End Date Carolina Coronel PA [facility] [place] [address] PCP - General 08/05/23
--- OUTSIDE RECORDS SUMMARY | 2024-11-23 17:00 | XMS_ITS | Clinical Summary ---
Author Organization [facility] Address [address] [place] [address] Care Team Providers Care Package Delivery Room Service Runner Name Role Phone Hayley Ascencio MD Primary [...] age to complete this topic Care Teams Package Delivery Room Service Runner Relationship Specialty Start Date End Date Hayley Ascencio MD PCP - General Internal Medicine 04/21/17
--- OUTSIDE RECORDS SUMMARY | 2024-11-23 17:00 | XMS_ITS | Encounter Summary ---
Author Organization [facility] Address [address] [place] [address] Care Team Providers Care Sheetmetal Patternmaker Name Role Phone Carolina Coronel Primary Care Provider [phone] Encounter Details Date Type Department Care Team (Late st Contact Info) Description 11/08/2024 Telephone Neurosurgery [facility] [address] [facility] [address] [place] [address] [place], [place] Social History Tobacco Use Types Packs/Day [...] 12/07/2024 2:00 PM EDT Office Visit Neurosurgery [facility] [address] [address] Chencho Hampton PA [address] [address] Scheduled Orders Name Type Priority Associated Diagnoses Orde r Schedule XR Lumbar Spine 4+ Views Imaging Routine Chronic low back pain, unspecified back pain laterality, unspecified whether sciatica present Expected: 11/09/2024, Expires: 11/09/2025 documented as of this encounter Visit Diagnoses Diagnosis Chronic low back pain, unspecified back pain laterality, unspecified whether sciatica present- Primary documented in this encounter Care Teams Sheetmetal Patternmaker Relationship Specialty Start Date End Date Carolina Coronel PA [address] [place] [address] PCP - General 08/05/23 documented as of this encounter
== END 2024-11-23 15:09 | disposition home or self-care (01) ==
LOC: HO.HMCFM 14:09
PROVIDERS: PCP Physician Assistant Medical; Visit Provider Physician Assistant
DX: R10.9 Unspecified abdominal pain (principal); G89.29 Other chronic pain; R19.7 Diarrhea, unspecified

== ENCOUNTER 2024-12-19 13:37 | Outpatient (REF) | payer MEDICARE, SELFPAY ==
--- OUTSIDE RECORDS SUMMARY | 2024-12-19 13:39 | XMS_ITS | Clinical Summary ---
Author Organization 175 [facility] Address [address] [place] [address] Phone Care Team Providers Care Sharepoint Consultant Name Role Phone Carolina Coronel Primary Care Provider [phone] Allergies Active Allergy Reactions Criticality Noted Date [...] 6 weeks for repeat evaluation. Pulmonary embolism (CMS/HCC V24, CMS/HCC V28) A-fib (CMS/HCC V24, CMS/HCC V28) 03/24/2023 Overview (11/16/2024): RAPID Status post total knee replacement 01/05/2023 Overview (11/16/2024): needs antibiotics prior to dental work. Lumbar radiculopathy 01/05/2023 Compression fracture of L4 v ertebra ([facility] V24, [facility] V28) 04/18/2016 Overview (11/16/2024): Dr. FAIRCHILD Disorder of shoulder 12/19/2014 PTSD (post-traumatic stress disorder) 10/04/2013 Depression, major 10/04/2013 Encounters Date Type Department Care Team Description 11/08/2024 Telephone Neurosurgery [facility] [address] [place] [address] [facility] [place] from Last 3 Months Immunizations Name [...] Left L4-L5 OTHER SURGICAL HISTORY 1990 PROCEDURE: [place] ANES TRANSURETHRAL W/URETHROCYSTOSCOPY NOS; COMMENT: vesicourethroexy- Dr. Holbrook OTHER SURGICAL HISTORY 1969 PROCEDURE: [place] BSO W/OMENTECTOMY TRINA&RAD DEBULKING DISSECTION; COMMENT: Right salphingo-oophorectomy, lysis of adhesions OTHER SURGICAL HISTORY 1965 PROCEDURE: HISTORICAL TOTAL HYSTERECTOMY W/O BSO; COMMENT: total wtih Left salpingo-oophorectomy, lysis of adhesions APPENDECTOMY 1965 PROCEDURE: HISTORICAL APPENDECTOMY; COMMENT: Dr. Thomas Jauregui ROTATOR CUFF REPAIR [id number] PROCEDURE: HISTORICAL ROTATOR CUFF REPAIR; COMMENT: Left shoulder Dr Rojo OTHER SURGICAL HISTORY 07/21/13 PROCEDURE: [place] ARTHROPLASTY GLENOHUMERAL JOINT TOTAL SHOULDER; COMMENT: Left Dr Rojo SHOULDER SURGERY [id number] Right PROCEDURE: HISTORICAL SHOULDER SURGERY; COMMENT: Dr Rojo- R shoulder arthroplasty BACK SURGERY [id number] PROCEDURE: HISTORICAL BACK SURGERY; COMMENT: Exploration of l4-s1 fusion with l3-l4 posterior deompression. BACK SURGERY 05/14/16 PROCEDURE: HISTORICAL BACK SURGERY; COMMENT: Exploration of l3-l4 fusion with l4 kyphoplasty and l3to s1 segmental fixation BREAST BIOPSY PROCEDURE: BX BREAST; PERC NEEDLE CORE W/IMAG GUID; COMMENT: lt. breast [id number] cyst COLONOSCOPY PROCEDURE: HISTORICAL COLONOSCOPY CHOLECYSTECTOMY PROCEDURE: [place] LAPAROSCOPY SURG CHOLECYSTECTOMY APPENDECTOMY PROCEDURE: [place] APPENDECTOMY HYSTERECTOMY PROCEDURE: HISTORICAL HYSTERECTOMY Medical History [...] 4 lumbar vertebra; COMMENT: Dr. FAIRCHILD A-fib ([facility] V24, [facility] V28) DX:A-fib ([facility]) Personal history of malignan t neoplasm of [...] 08/14/2023 3:39 PM EST Plan of Treatment Health Maintenance Due Date Last Done Comments RSV Immunization Adult Patients (1 - 1-dose 75+ series) 2014 Zoster Vaccines (2 of 2) 07/26/2019 05/31/2019, 05/31 Depression Screening 07/29/2022 Falls Risk Assessment 07/29/2022 Medicare Annual Wellness Visit 07/29/2022 Social Influencers of Health Screening 07/29/2022 COVID-19 Vaccine ( season) 2024 08/07/2021, 12/06/2020 Influenza Vaccine (Season Ended) 2025 06/10/2022, 08/07/2021, 05/24/2020, Additional history exists Osteoporosis Screening [...] age to complete this topic Meningococcal B Vaccine Aged Out No l onger eligible based on patient's age to complete [...] prior history of fracture. The [facility] Department of Internal Medicine recommends using National [...] a prior history offracture. The [facility] Department of Internal Medicine recommendsusing National Osteoporosis [...] fracture risk by FRAX. Hayley Ascencio MD [facility] DXA PROCEDURES Bibi l Result from Last 3 Months or Most Recently Relevant to Health Maintenance Insurance [employer] MEDICARE Care Teams Sharepoint Consultant Relationship Specialty Start Date End Date Carolina Coronel PA [address] [place], [place] [id number] PCP - General 08/05/23
--- OUTSIDE RECORDS SUMMARY | 2024-12-19 13:39 | XMS_ITS | Clinical Summary ---
Author Organization [facility] Address [address] [place] [address] Care Team Providers Care Appliance Line Assembler Name Role Phone Hayley Ascencio MD Primary [...] age to complete this topic Care Teams Appliance Line Assembler Relationship Specialty Start Date End Date Hayley Ascencio MD PCP - General Internal Medicine 04/21/17
[2024-12-19 15:11] LABS: CDiff Gene PCR NEGATIVE (Negative)
[2024-12-22 14:13] LABS: Fecal Fat Qualitative Normal (Normal)
== END 2024-12-19 13:38 | disposition home or self-care (01) ==
LOC: HO.LNP 13:37
PROVIDERS: Visit Provider Physician Assistant
DX: R19.7 Diarrhea, unspecified (principal); R10.9 Unspecified abdominal pain; G89.29 Other chronic pain
CPT/HCPCS: 82705; 83993; 87493

== ENCOUNTER 2024-12-22 13:49 | Outpatient (AMB) | payer MEDICARE, SELFPAY ==
--- NOTE | 2024-12-22 13:52 | MHC.PC.OV ---
Vital Signs 12/22/24 13:59 Height 5 ft 4 in BMI Reason not done Patient refused/unable BP 110/82 Blood Pressure Location Rt brachial Position Sitting Respiration 14 Pulse 119 H Pulse Source Pulse Oximeter Pulse Oximetry (%) 96 Oxygen Delivery Method Room Air Oxygen Flow Rate 97.9 Intake Visit Reasons: with pcp f/u GI sx /med check Intake Note: Nandini presents in the office today for a follow up to GI issues and a medication check in. Allergies amiodarone Allergy (Severe, Verified 12/22/24 13:56) throat swelling latex [Latex] Allergy (Mild, Verified 12/22/24 13:56) HIVES,ITCHING nitroglycerin [Nitroglycerin] Adverse Reaction (Mild, Verified 12/22/24 13:56) LOW BP,DIZZY Tobacco use date assessed: 12/22/24 Fall risk assessment: No Falls in past year Last assessed Fall Risk: 12/22/24 Dental Screening Dental Screen Date: 12/22/24 Did you have a dental visit in the last 12 months?: Yes Did you have a dental problem in the last 6 months where you did not have access to dental care?: No Was dental information given to patient?: Patient has dentist HPI HPI Comments History of Present Illness Details This is an 84-year-old female with a past medical history of chronic pain, anxiety disorder, papillary thyroid carcinoma, hypothyroidism, insomnia, paroxysmal atrial fibrillation and depression presenting for ER follow up. The patient continues to complain of gastrointestinal symptoms that have been ongoing for at least 6 months. As you recall she was seen at the emergency department at [facility] on 09/26/2024 for nausea, diarrhea, dark stools and generalized abdominal pain. She had a CAT scan of the abdomen and pelvis which showed possible enteritis. In the interim she saw my colleague who ordered stool studies and referred the patient back to Gastroenterology. The referral was sent to [facility], but she had to pay more at that location due to insurance. Celiac panel was negative as well as C diff testing. CBC 11/23/24 was normal. She was found to have mild hyponatremia with a sodium level of 130 on 11/23/2024. Renal function and liver function were normal. Her CRP was also mildly elevated at 0.84. She endorses intermittent diarrhea. She's had no diarrhea the past 3 days since following a very bland diet with rice. She endorses severe, episodic stomach spasms and abdominal pain for a few years, and she was previously evaluated for this by GI at [facility]. She had endoscopy and colonoscopy a couple of years ago and prior CAT scans of the abdomen. The oxycodone she takes her chronic pain does help with her symptoms. She tried dairy elimination and gluten elimination without success. Chronic pain-she has a history of 3 back surgeries, bilateral knee replacements and shoulder surgery. She was previously on a controlled substance contract with Dr. Ascencio at [place], and her medications were continued at [facility] primary care before she transferred to [facility]. Current pain regimen: OxyContin 10 mg twice daily (56 tablets per 28 days) Oxycodone 5 mg 3 times a day as needed for breakthrough pain (70 tablets per 28 days) Sulindac 200 mg twice daily as needed for pain. She will supplement with acetaminophen as needed. She had hip x-rays completed on 04/12/2024 which showed moderate right and moderate to severe left hip osteoarthritis. She has chronic bilateral hip pain. Patient had a CT chest March 2024 which demonstrated age indeterminate multilevel compression deformities in the thoracolumbar spine. She has chronic middle and lower back pain. Her average pain level is 10/10 without medication. She had an MRI on 10/27/2024 of the right hip which demonstrated mild anterior superior acetabular chondrosis and no evidence of labral defect. Patient reports she has an appointment scheduled with new [facility] for evaluation, but right now she is prioritizing her lower back. Patient was going to see Dr. Rasheed, but she could not go because she was having GI symptoms that day. She continues to endorse severe pain in the right hip/groin that is worse when she abducts her leg. It is described as sharp when she moves and aching at all times. She feels it when she tries to get out of bed in the morning or get in and out of a car. It also is severely painful when she walks. Depression with anxiety-previously under the care of a therapist. Treated with sertraline 150 mg daily and lorazepam as needed. Sertraline was increased from 100-150 mg at her last visit. She receives 40 tablets per month. She notices worsening anxiety and depression secondary to her chronic pain. Heart rate initially is 119. Patient says she has not felt well or slept well. EKG was done and ventricular rate was 84 beats per minute. ROS: Constitutional: No fevers, chills or unexplained weight loss. Denied getting her weight today. Respiratory: No shortness of breath, cough, wheezing Cardiovascular: No chest pain, palpitations or pedal edema Gastrointestinal: See HPI. Denies be are BRBPR. Denies vomiting. Genitourinary: No dysuria, hematuria, urinary frequency. Neurologic: No headache, dizziness, syncope Musculoskeletal: See HPI Hematologic/Lymphatics: No bleeding or bruising Skin: No rash Psychiatric: No SI/HI. Physical exam: Constitutional: Alert, in no distress. Respiratory: Clear to auscultation. Cardiovascular: S1 S2 regular. No murmurs. Gastrointestinal: Abdomen is soft, no guarding or rebound she has mild tenderness across the lower abdomen bilaterally. No palpable masses. : No CVA tenderness. Extremities: Warm and well perfused. No clubbing, cyanosis or edema. Symmetric peripheral pulses. Psychiatric: Normal mood and affect [facility] Medical History (Updated 12/22/24 @ 14:08 by GERALD Ferreira) Abdominal pain Hyponatremia Enteritis Chronic dermatitis Fatigue Depression with anxiety DDD (degenerative disc disease), thoracolumbar Bilateral primary osteoarthritis of hip Abnormal chest CT Heart murmur Chronic abdominal pain Right hip pain Fusion of lumbar spine Renal lesion Recurrent UTI Paroxysmal A-fib Osteoarthritis of hand Major depression, recurrent Lumbar radiculopathy Insomnia Hypothyroidism, postop Hx of papillary thyroid carcinoma Hx of compression fracture of spine Generalized anxiety disorder Esophageal abnormality Dark stools Chronic radicular lumbar pain Chronic prescription opiate use Chronic pain Chronic diarrhea Surgical History History of bilateral knee replacement H/O vertebroplasty Hx of shoulder replacement Status post lumbar surgery Family History Mother Congestive heart failure Father Cancer Brother Congestive heart failure Social History (Updated 12/22/24 @ 13:58 by Shirin Avalos MA) Housing: House Alcohol intake: former Patient Tobacco Use Status: Never used Tobacco e-Cigarette/Vaping Use: Never Used Second Hand Smoke Exposure: No service: No Current occupational status: retired Cognitive needs: No Hearing needs: No Vision needs: No Questionnaire Thrive Questionnaire Date Thrive assessed: 12/22/24 I am a: Patient What is your living situation today?: I have a steady place to live Within the past 12 months, did the food you bought not last and you didn't have the money to get more?: I choose not to answer this question Within the past 12 months, did you worry whether your food would run out before you got money to buy more?: I choose not to answer this question Do you have trouble paying for medicines?: I choose not to answer this question Do you have trouble getting transportation to medical appointments?: I choose not to answer this question Do you have trouble paying your heating and electricity bill?: I choose not to answer this question Do you have trouble taking care of your child, family member or friend?: I choose not to answer this question Do you have trouble with day-to-day activities such as bathing, preparing meals, shopping, managing finances, etc.?: I choose not to answer this question Are you currently unemployed and looking for a job?: I choose not to answer this question Are you interested in more education?: I choose not to answer this question Please select the resources that you would like help with: None Currently or been in a relationship where the following occur: I choose not to answer THRIVE Score: 0 AUDIT C Alcohol Use Questionnaire (AUDIT-C) 1. How often do you have a drink containing alcohol?: Never Total Score: 0 SHEILA-7 AMB Questionnaire SHEILA-7 Date SHEILA - 7 assessed: 12/22/24 Source: Developed by Drs. Ethan Montesinos, Gracie Bautista, Ravinder Brooks and colleagues, with an educational sonali from [employer]. ACT Questionnaire In the past 4 weeks, how much of the time did your asthma keep you from getting as much done at work, school or at home?: None of the time Score: 5 Physical exam (Primary Care) Vital Signs: Last Vital Signs Pulse 119 H 12/22/24 13:59 Resp 14 12/22/24 13:59 BP 110/82 12/22/24 13:59 Pulse Ox 96 12/22/24 13:59 Oxygen Delivery Method Room Air 12/22/24 13:59 Oxygen Flow Rate 97.9 12/22/24 13:59 Tobacco/Smoking Status: Tobacco use Status Tobacco use date assessed 12/22/24 12/22/24 14:03 Patient Tobacco Use Status Never used Tobacco 12/22/24 13:58 e-Cigarette/Vaping Use Never Used 12/22/24 13:58 Thrive Assessment: Date of Thrive Assessment Date Thrive assessed 12/22/24 12/22/24 13:59 Currently or been in a relationship where the following occur: I choose not to answer Office Procedures EKG Details: Patient's EKG shows a ventricular rate of 84 beats per minute, sinus rhythm with PACs. 63362-[id number], Complete Coding Level of Care Code Est Pt Level 4 (57997) Complex EM visit Add On G2211 Diagnoses Bilateral primary osteoarthritis of hip M16.0 Right hip pain M25.551 Lumbar radiculopathy M54.16 DDD (degenerative disc disease), thoracolumbar M51.35 Depression with anxiety F41.8 Hyponatremia E87.1 Abdominal pain R10.9 Diarrhea R19.7 CPT Codes EKG - CPT: 91197-[id number], Complete ([id number]) Assessment & Plan Assessment & Plan (1) Bilateral primary osteoarthritis of hip: Code(s): M16.0 - Bilateral primary osteoarthritis of hip Category: Medical (2) Right hip pain: Code(s): M25.551 - Pain in right hip Category: Medical (3) Lumbar radiculopathy: Code(s): M54.16 - Radiculopathy, lumbar region Category: Medical Plan: The patient has chronic, multifactorial pain despite interventions in the past including physical therapy and multiple surgeries. I will continue her current medications for pain. Keep upcoming appointment with [facility]. Controlled substance contract on file. (4) DDD (degenerative disc disease), thoracolumbar: Code(s): M51.35 - Other intervertebral disc degeneration, thoracolumbar region Category: Medical (5) Depression with anxiety: Code(s): F41.8 - Other specified anxiety disorders Category: Medical Plan: Continue sertraline 150 mg daily and lorazepam as needed Cautioned it is sedating and causes drowsiness and she should not drive or operate heavy machinery when she takes this medication. Controlled substance contract on file. (6) Hyponatremia: Code(s): E87.1 - Hypo-osmolality and hyponatremia Category: Medical Plan: Recheck sodium level. (7) Abdominal pain: Code(s): R10.9 - Unspecified abdominal pain Category: Medical Plan: We will proceed with further evaluation with CT angiogram of the abdomen and pelvis to rule out chronic mesenteric ischemia given report of severe episodic abdominal pain and spasms. Ordered GI PCR panel. Patient returning fecal occult blood tests today to the lab. Patient referred to Gastroenterology urgently. Warning signs warranting re-evaluation at the ER reviewed. [place] her diet has helped so she will continue that for now. I will follow up with the patient once I have her test results. (8) Diarrhea: Code(s): R19.7 - Diarrhea, unspecified Category: Medical Plan: See above. Plan Follow up once results are complete. Orders: Orders Sodium 12/22/24 E87.1 - Hypo-osmolality and hyponatremia GI Panel 12/22/24 R10.9 - Unspecified abdominal pain, R19.7 - Diarrhea, unspecified AMB EKG-In Office 12/22/24 E87.1 - Hypo-osmolality and hyponatremia, R10.9 - Unspecified abdominal pain CT angio abdomen pelvis Today R10.9 - Unspecified abdominal pain Referrals Gastroenterology Referral R10.9 - Unspecified abdominal pain, R19.7 - Diarrhea, unspecified
[2024-12-22 13:59] VITALS: BP 110/82; PULSE 119; RESP 14; O2SAT 96
--- OUTSIDE RECORDS SUMMARY | 2024-12-22 16:15 | XMS_ITS | Clinical Summary ---
Author Organization [facility] Address [address] [place] [address] Care Team Providers Care Taco Maker Name Role Phone Hayley Ascencio MD Primary [...] age to complete this topic Care Teams Taco Maker Relationship Specialty Start Date End Date Hayley Ascencio MD PCP - General Internal Medicine 04/21/17
--- OUTSIDE RECORDS SUMMARY | 2024-12-22 16:15 | XMS_ITS | Clinical Summary ---
Author Organization [address] [facility] Address [address] [place] [address] Phone Care Team Providers Care Collection Clerk Name Role Phone Carolina Coronel Primary Care Provider [phone] Allergies Active Allergy Reactions Criticality Noted Date [...] 01/05/2023 Compression fracture of L4 v ertebra ([facility] V24, [facility] V28) 04/18/2016 Overview (11/16/2024): Dr. FAIRCHILD Disorder of shoulder 12/19/2014 PTSD (post-traumatic stress disorder) 10/04/2013 Depression, major 10/04/2013 Encounters Date Type Department Care Team Description 11/08/2024 Telephone Neurosurgery [place] [address] [place] [address] [facility] [place] from Last 3 Months Immunizations Name [...] Left L4-L5 OTHER SURGICAL HISTORY 1990 PROCEDURE: [place] ANES TRANSURETHRAL W/URETHROCYSTOSCOPY NOS; COMMENT: vesicourethroexy- Dr. Holbrook OTHER SURGICAL HISTORY 1969 PROCEDURE: MA BSO W/OMENTECTOMY TRINA&RAD DEBULKING DISSECTION; COMMENT: Right salphingo-oophorectomy, lysis of adhesions OTHER SURGICAL HISTORY 1965 PROCEDURE: HISTORICAL TOTAL HYSTERECTOMY W/O BSO; COMMENT: total wtih Left salpingo-oophorectomy, lysis of adhesions APPENDECTOMY 1965 PROCEDURE: HISTORICAL APPENDECTOMY; COMMENT: Dr. Thomas Jauregui ROTATOR CUFF REPAIR [id number] PROCEDURE: HISTORICAL ROTATOR CUFF REPAIR; COMMENT: Left shoulder Dr Rojo OTHER SURGICAL HISTORY 07/21/13 PROCEDURE: [place] ARTHROPLASTY GLENOHUMERAL JOINT TOTAL SHOULDER; COMMENT: Left Dr Rojo SHOULDER SURGERY [id number] Right PROCEDURE: HISTORICAL SHOULDER SURGERY; COMMENT: Dr Rojo- R shoulder arthroplasty BACK SURGERY [id number] PROCEDURE: HISTORICAL BACK SURGERY; COMMENT: Exploration of l4-s1 fusion with l3-l4 posterior deompression. BACK SURGERY 05/14/16 PROCEDURE: HISTORICAL BACK SURGERY; COMMENT: Exploration of l3-l4 fusion with l4 kyphoplasty and l3to s1 segmental fixation BREAST BIOPSY PROCEDURE: BX BREAST; PERC NEEDLE CORE W/IMAG GUID; COMMENT: lt. breast [id number] cyst COLONOSCOPY PROCEDURE: HISTORICAL COLONOSCOPY CHOLECYSTECTOMY PROCEDURE: MA LAPAROSCOPY SURG CHOLECYSTECTOMY APPENDECTOMY PROCEDURE: MA APPENDECTOMY HYSTERECTOMY PROCEDURE: HISTORICAL HYSTERECTOMY Medical History [...] 4 lumbar vertebra; COMMENT: Dr. FAIRCHILD A-fib ([facility] V24, [facility] V28) DX:A-fib ([facility]) Personal history of malignan t neoplasm of [...] has a prior history of fracture. The [facility] Department of Internal Medicine recommends using National [...] patient has a prior history offracture. The [facility] Department of Internal Medicine recommendsusing National Osteoporosis [...] fracture risk by FRAX. Hayley Ascencio MD [facility] DXA PROCEDURES Bibi l Result from Last 3 Months or Most Recently Relevant to Health Maintenance Insurance [employer] MEDICARE Care Teams Collection Clerk Relationship Specialty Start Date End Date Carolina Coronel PA [address] [place], [place] [id number] PCP - General 08/05/23
== END 2024-12-22 14:54 | disposition home or self-care (01) ==
LOC: HO.HMCFM 13:50
PROVIDERS: PCP Physician Assistant Medical; Visit Provider Physician Assistant Medical
DX: E87.1 Hypo-osmolality and hyponatremia (principal)

== ENCOUNTER → 2024-12-22 13:49 | Outpatient (BNVA) | payer MEDICARE, SELFPAY | PROVIDERS: PCP Physician Assistant Medical; Visit Provider Physician Assistant Medical | DX: Z13.89 Encounter for screening for other disorder (principal) | CPT/HCPCS: 93005 ==

== ENCOUNTER 2024-12-22 14:58 | Outpatient (REF) | payer MEDICARE, SELFPAY ==
--- OUTSIDE RECORDS SUMMARY | 2024-12-22 17:43 | XMS_ITS | Clinical Summary ---
Author Organization [address] [facility] Address [address] [place] [address] Phone Care Team Providers Care Pig Casting Machine Operator Name Role Phone Carolina Coronel Primary Care Provider [phone] Allergies Active Allergy Reactions Criticality Noted Date [...] 01/05/2023 Compression fracture of L4 v ertebra ([facility] V24, [facility] V28) 04/18/2016 Overview (11/16/2024): Dr. FAIRCHILD Disorder of shoulder 12/19/2014 PTSD (post-traumatic stress disorder) 10/04/2013 Depression, major 10/04/2013 Encounters Date Type Department Care Team Description 11/08/2024 Telephone Neurosurgery [place] [address] [place] [address] [facility] [place], [place] from Last 3 Months Immunizations Name [...] COMMENT: Dr. Thomas Jauregui ROTATOR CUFF REPAIR [id number] PROCEDURE: HISTORICAL ROTATOR CUFF REPAIR; COMMENT: Left shoulder Dr Rojo OTHER SURGICAL HISTORY 07/21/13 PROCEDURE: [place] ARTHROPLASTY GLENOHUMERAL JOINT TOTAL SHOULDER; COMMENT: Left Dr Rojo SHOULDER SURGERY [id number] Right PROCEDURE: HISTORICAL SHOULDER SURGERY; COMMENT: Dr Rojo- R shoulder arthroplasty BACK SURGERY [id number] PROCEDURE: HISTORICAL BACK SURGERY; COMMENT: Exploration of l4-s1 fusion with l3-l4 posterior deompression. BACK SURGERY 05/14/16 PROCEDURE: HISTORICAL BACK SURGERY; COMMENT: Exploration of l3-l4 fusion with l4 kyphoplasty and l3to s1 segmental fixation BREAST BIOPSY PROCEDURE: BX BREAST; PERC NEEDLE CORE W/IMAG GUID; COMMENT: lt. breast [id number] cyst COLONOSCOPY PROCEDURE: HISTORICAL COLONOSCOPY CHOLECYSTECTOMY PROCEDURE: [...] 4 lumbar vertebra; COMMENT: Dr. FAIRCHILD A-fib ([facility] V24, [facility] V28) DX:A-fib ([facility]) Personal history of malignan t neoplasm [...] has a prior history of fracture. The [facility] Department of Internal Medicine recommends using [...] patient has a prior history offracture. The [facility] Department of Internal Medicine recommendsusing National [...] fracture risk by FRAX. Hayley Ascencio MD [facility] DXA PROCEDURES Bibi l Result from Last 3 Months or Most Recently Relevant to Health Maintenance Insurance [place] [id number] Care Teams Pig Casting Machine Operator Relationship Specialty Start Date End Date Carolina Coronel PA [address] [place], [place] [phone] PCP - General 08/05/23
--- OUTSIDE RECORDS SUMMARY | 2024-12-22 17:43 | XMS_ITS | Clinical Summary ---
Author Organization [facility] Address [address] [place] [address] Care Team Providers Care Putty Tinter Maker Name Role Phone Hayley Ascencio MD [...] age to complete this topic Care Teams Putty Tinter Maker Relationship Specialty Start Date End Date Hayley Ascencio MD PCP - General Internal Medicine 04/21/17
[2024-12-22 18:10] LABS: Sodium 135 mmol/L (135-145)
[2024-12-22 18:15] LABS: OBS1 NEGATIVE (NEGATIVE)
[2024-12-22 18:16] LABS: OBS Int Ctl Valid YES; OBS Lot 0432 4L; OBS2 NEGATIVE (NEGATIVE); OBS3 NEGATIVE (NEGATIVE)
== END 2024-12-22 14:59 | disposition home or self-care (01) ==
LOC: HO.WFDLDS 14:58
PROVIDERS: Physician Assistant; Visit Provider Physician Assistant Medical
DX: E87.1 Hypo-osmolality and hyponatremia (principal); R19.7 Diarrhea, unspecified; R10.9 Unspecified abdominal pain; G89.29 Other chronic pain
CPT/HCPCS: 36415; 82270; 84295; 93005; 99212

== ENCOUNTER 2024-12-24 14:00 | Outpatient (REF) | payer MEDICARE, SELFPAY ==
[2024-12-26 16:16] LABS: Adenovirus F 40/41 Not Detected (Not Detect.); Astrovirus Not Detected (Not Detect.); Campylobacter Not Detected (Not Detect.); Cryptosporidium Not Detected (Not Detect.); Cyclospora cayetanensis Not Detected (Not Detect.); E. coli EAEC Not Detected (Not Detect.); E. coli EPEC Not Detected (Not Detect.); E. coli ETEC Not Detected (Not Detect.); E. coli STEC Not Detected (Not Detect.); Entamoeba histolytica Not Detected (Not Detect.); Giardia lamblia Not Detected (Not Detect.); Norovirus GI/GII Not Detected (Not Detect.); Plesiomonas shigelloides Not Detected (Not Detect.); Rotavirus A Not Detected (Not Detect.); Salmonella Not Detected (Not Detect.); Sapovirus Not Detected (Not Detect.); Shigella sp./EIEC Not Detected (Not Detect.); Vibrio Not Detected (Not Detect.); Vibrio Cholerae Not Detected (Not Detect.); Yersinia enterocolitica Not Detected (Not Detect.)
--- OUTSIDE RECORDS SUMMARY | 2024-12-26 16:56 | XMS_ITS | Clinical Summary ---
Author Organization 175 [facility] Address [address] [place] [address] Phone Care Team Providers Care Casino Cashier Manager Name Role Phone Carolina Coronel Primary Care Provider [phone] Allergies Active Allergy Reactions Criticality Noted Date [...] 01/05/2023 Compression fracture of L4 v ertebra ([facility] V24, [facility] V28) 04/18/2016 Overview (11/16/2024): Dr. FAIRCHILD Disorder of shoulder 12/19/2014 PTSD (post-traumatic stress disorder) 10/04/2013 Depression, major 10/04/2013 Encounters Date Type Department Care Team Description 11/08/2024 Telephone Neurosurgery [place] [address] [place] [address] [facility] [place] from Last 3 Months Immunizations Name [...] Left L4-L5 OTHER SURGICAL HISTORY 1990 PROCEDURE: [place] ANES TRANSURETHRAL W/URETHROCYSTOSCOPY NOS; COMMENT: vesicourethroexy- Dr. Holbrook OTHER SURGICAL HISTORY 1969 PROCEDURE: [place] BSO W/OMENTECTOMY TRINA&RAD DEBULKING DISSECTION; COMMENT: Right salphingo-oophorectomy, lysis of adhesions OTHER SURGICAL HISTORY 1965 PROCEDURE: HISTORICAL TOTAL HYSTERECTOMY W/O BSO; COMMENT: total wtih Left salpingo-oophorectomy, lysis of adhesions APPENDECTOMY 1965 PROCEDURE: HISTORICAL APPENDECTOMY; COMMENT: Dr. Thomas Jauregui ROTATOR CUFF REPAIR [id number] PROCEDURE: HISTORICAL ROTATOR CUFF REPAIR; COMMENT: Left shoulder Dr Rojo OTHER SURGICAL HISTORY 07/21/13 PROCEDURE: [place] ARTHROPLASTY GLENOHUMERAL JOINT TOTAL SHOULDER; COMMENT: Left Dr oRjo SHOULDER SURGERY [id number] Right PROCEDURE: HISTORICAL SHOULDER SURGERY; COMMENT: Dr Rojo- R shoulder arthroplasty BACK SURGERY [id number] PROCEDURE: HISTORICAL BACK SURGERY; COMMENT: Exploration of l4-s1 fusion with l3-l4 posterior deompression. BACK SURGERY 05/14/16 PROCEDURE: HISTORICAL BACK SURGERY; COMMENT: Exploration of l3-l4 fusion with l4 kyphoplasty and l3to s1 segmental fixation BREAST BIOPSY PROCEDURE: BX BREAST; PERC NEEDLE CORE W/IMAG GUID; COMMENT: lt. breast [id number] cyst COLONOSCOPY PROCEDURE: HISTORICAL COLONOSCOPY CHOLECYSTECTOMY PROCEDURE: CA LAPAROSCOPY SURG CHOLECYSTECTOMY APPENDECTOMY PROCEDURE: [place] APPENDECTOMY HYSTERECTOMY PROCEDURE: HISTORICAL HYSTERECTOMY Medical History [...] 4 lumbar vertebra; COMMENT: Dr. FAIRCHILD A-fib ([facility] V24, [facility] V28) DX:A-fib ([facility]) Personal history of malignan t neoplasm of [...] - 1-dose 75+ series) 2014 Zoster Vaccines (3 of 3) 07/26/2019 05/31/2019, 05/31 Depression Screening 07/29/2022 Falls [...] has a prior history of fracture. The [facility] Department of Internal Medicine recommends using [...] patient has a prior history offracture. The [facility] Department of Internal Medicine recommendsusing National [...] fracture risk by FRAX. Hayley Ascencio MD [facility] DXA PROCEDURES Bibi l Result from Last 3 Months or Most Recently Relevant to Health Maintenance Insurance [employer] MED[employer] Care Teams Casino Cashier Manager Relationship Specialty Start Date End Date Carolina Coronel PA [address] [place], [place] [phone] PCP - General 08/05/23
--- OUTSIDE RECORDS SUMMARY | 2024-12-26 16:56 | XMS_ITS | Clinical Summary ---
Author Organization [facility] Address [address] [place] [address] Care Team Providers Care Rate Inserter Name Role Phone Hayley Ascencio MD Primary [...] age to complete this topic Care Teams Rate Inserter Relationship Specialty Start Date End Date Hayley Ascencio MD PCP - General Internal Medicine 04/21/17
== END 2024-12-24 14:01 | disposition home or self-care (01) ==
LOC: HO.LNP 14:00
PROVIDERS: Visit Provider Physician Assistant Medical
DX: R10.9 Unspecified abdominal pain (principal); R19.7 Diarrhea, unspecified
CPT/HCPCS: 87507

== ENCOUNTER 2025-03-23 11:36 | Outpatient (AMB) | payer MEDICARE, SELFPAY ==
--- NOTE | 2025-03-23 11:39 | MHC.PC.OV ---
Vital Signs 03/23/25 11:43 Height 5 ft 4 in BMI Reason not done Patient refused/unable BP 118/68 Blood Pressure Location Lt brachial Position Sitting Respiration 14 Pulse 93 Pulse Source Pulse Oximeter Temp 97.9 F Temp Source Temporal Artery Scan Pulse Oximetry (%) 94 Oxygen Delivery Method Room Air Intake Visit Reasons: chronic opioids Intake Note: Nandini presents in the office for Chronic opiods. Allergies amiodarone Allergy (Severe, Verified 03/23/25 11:41) throat swelling latex (Latex) Allergy (Mild, Verified 03/23/25 11:41) HIVES,ITCHING nitroglycerin (Nitroglycerin) Adverse Reaction (Mild, Verified 03/23/25 11:41) LOW BP,DIZZY Tobacco use date assessed: 03/23/25 Fall risk assessment: No Falls in past year Last assessed Fall Risk: 03/23/25 Dental Screening Dental Screen Date: 03/23/25 Did you have a dental visit in the last 12 months?: Yes Did you have a dental problem in the last 6 months where you did not have access to dental care?: No Was dental information given to patient?: Patient has dentist HPI HPI Comments History of Present Illness Details This is an 84-year-old female with a past medical history of chronic pain, anxiety disorder, papillary thyroid carcinoma, hypothyroidism, insomnia, paroxysmal atrial fibrillation and depression presenting for ER follow up. The patient continues to complain of gastrointestinal symptoms that have been ongoing for at least 6-12 months. As you recall she was seen at the emergency department at [facility] on 09/26/2024 for nausea, diarrhea, dark stools and generalized abdominal pain. She had a CAT scan of the abdomen and pelvis which showed possible enteritis. In the interim she saw my colleague who ordered stool studies and referred the patient back to Gastroenterology. She did not schedule this consult, but she has the contact information to do do. Celiac panel was negative as well as C diff testing. CBC 11/23/24 was normal. She endorses intermittent diarrhea Negative GI PCR panel 12/24/24. Stool negative for occult blood x 01 December 2024. She endorses severe, episodic stomach spasms and abdominal pain and bloating for a few years, and she was previously evaluated for this by GI at [facility]. She had endoscopy and colonoscopy a couple of years ago and prior CAT scans of the abdomen. The oxycodone she takes her chronic pain does help with her symptoms. She tried dairy elimination and gluten elimination without success. Patient had CTA with no evidence of mesenteric ischemia. There was a small splenic artery aneurysm stable from a prior exam in 2022. She alsochronic fullness of right renal collecting system and a 1.4 cm left upper pole hypodensity stable since March 2023, likely a hemorrhagic or proteinaceous cyst. She reports this has been there for many years and she saw urology who did not recommend intervention. Chronic pain-she has a history of 3 back surgeries, bilateral knee replacements and shoulder surgery. She was previously on a controlled substance contract with Dr. Ascencio at [place], and her medications were continued at [facility] primary care before she transferred to [facility]. Current pain regimen: OxyContin 10 mg twice daily (56 tablets per 28 days) Oxycodone 5 mg 3 times a day as needed for breakthrough pain (70 tablets per 28 days) Sulindac 200 mg twice daily as needed for pain. She will supplement with acetaminophen as needed. She had hip x-rays completed on 04/12/2024 which showed moderate right and moderate to severe left hip osteoarthritis. She has chronic bilateral hip pain. Patient had a CT chest March 2024 which demonstrated age indeterminate multilevel compression deformities in the thoracolumbar spine. She has chronic middle and lower back pain. Her average pain level is 10/10 without medication. She had an MRI on 10/27/2024 of the right hip which demonstrated mild anterior superior acetabular chondrosis and no evidence of labral defect. Patient reports she has an appointment scheduled with [facility] for evaluation, but right now she is prioritizing her lower back. Patient was going to see Dr. Rasheed, but she could not go because she was having GI symptoms that day. She continues to endorse severe pain in the right hip/groin that is worse when she abducts her leg. It is described as sharp when she moves and aching at all times. She feels it when she tries to get out of bed in the morning or get in and out of a car. It also is severely painful when she walks. Depression with anxiety-previously under the care of a therapist. Treated with sertraline 150 mg daily and lorazepam as needed. She receives 40 tablets per month. She notices worsening anxiety and depression secondary to her chronic pain. The patient wacked her right hand on a piano a couple weeks ago. She sees Dr. Warner in 2 weeks who recommended she get an x-ray. Bruising resolved. It is painful to bend the 3rd, 4th and 5th digits. ROS: Constitutional: No fevers, chills or unexplained weight loss. Denied weight today. Respiratory: No shortness of breath, cough, wheezing Cardiovascular: No chest pain, palpitations or pedal edema Gastrointestinal: See HPI. Denies be are BRBPR. Denies vomiting. Genitourinary: No dysuria, hematuria, urinary frequency. Neurologic: No headache, dizziness, syncope Musculoskeletal: See HPI Hematologic/Lymphatics: No bleeding or bruising Skin: No rash Psychiatric: No SI/HI. Physical exam: Constitutional: Alert, in no distress. Respiratory: Clear to auscultation. Cardiovascular: S1 S2 regular. No murmurs. Gastrointestinal: Abdomen is soft, no guarding or rebound she has mild tenderness across the lower abdomen bilaterally. No palpable masses. : No CVA tenderness. Extremities: Warm and well perfused. No clubbing, cyanosis or edema. Symmetric peripheral pulses. Psychiatric: Normal mood and affect Hands: Arthritis changes. tender right 3rd, 4th and 5th digits. Bends fingers with pain. [facility] Medical History (Updated 03/23/25 @ 21:47 by GERALD Ferreira) Pain in right finger(s) Atherosclerotic vascular disease Abdominal pain Hyponatremia Enteritis Chronic dermatitis Fatigue Depression with anxiety DDD (degenerative disc disease), thoracolumbar Bilateral primary osteoarthritis of hip Abnormal chest CT Heart murmur Chronic abdominal pain Right hip pain Fusion of lumbar spine Renal lesion Recurrent UTI Paroxysmal A-fib Osteoarthritis of hand Major depression, recurrent Lumbar radiculopathy Insomnia Hypothyroidism, postop Hx of papillary thyroid carcinoma Hx of compression fracture of spine Generalized anxiety disorder Esophageal abnormality Dark stools Chronic radicular lumbar pain Chronic prescription opiate use Chronic pain Chronic diarrhea Surgical History History of bilateral knee replacement H/O vertebroplasty Hx of shoulder replacement Status post lumbar surgery Family History Mother Congestive heart failure Father Cancer Brother Congestive heart failure Social History (Updated 03/23/25 @ 11:43 by Shirin Avalos MA) Housing: House Alcohol intake: former Patient Tobacco Use Status: Never used Tobacco e-Cigarette/Vaping Use: Never Used Second Hand Smoke Exposure: No service: No Current occupational status: retired Cognitive needs: No Hearing needs: No Vision needs: No Questionnaire Thrive Questionnaire Date Thrive assessed: 11/23/24 SHEILA-7 AMB Questionnaire SHEILA-7 Date SHEILA - 7 assessed: 12/22/24 Source: Developed by Drs. Ethan Montesinos, Gracie Bautista, Ravinder Brooks and colleagues, with an educational sonali from [employer]. Physical exam (Primary Care) Vital Signs: Last Vital Signs Temp 97.9 F 03/23/25 11:43 Pulse 93 03/23/25 11:43 Resp 14 03/23/25 11:43 BP 118/68 03/23/25 11:43 Pulse Ox 94 03/23/25 11:43 Oxygen Delivery Method Room Air 03/23/25 11:43 Tobacco/Smoking Status: Tobacco use Status Tobacco use date assessed 03/23/25 03/23/25 11:43 Patient Tobacco Use Status Never used Tobacco 03/23/25 11:43 e-Cigarette/Vaping Use Never Used 03/23/25 11:43 Thrive Assessment: Date of Thrive Assessment Date Thrive assessed 11/23/24 03/23/25 11:43 Coding Level of Care Code Est Pt Level 4 (09398) Complex EM visit Add On G2211 Diagnoses Bilateral primary osteoarthritis of hip M16.0 Right hip pain M25.551 Lumbar radiculopathy M54.16 DDD (degenerative disc disease), thoracolumbar M51.35 Depression with anxiety F41.8 Generalized abdominal pain R10.84 Abdominal location: generalized Pain in right finger(s) M79.644 Assessment & Plan Assessment & Plan (1) Bilateral primary osteoarthritis of hip: Code(s): M16.0 - Bilateral primary osteoarthritis of hip Category: Medical (2) Right hip pain: Code(s): M25.551 - Pain in right hip Category: Medical (3) Lumbar radiculopathy: Code(s): M54.16 - Radiculopathy, lumbar region Category: Medical Plan: The patient has chronic, multifactorial pain despite interventions in the past including physical therapy and multiple surgeries. I will continue her current medications for pain. Follow up with [facility]. Controlled substance contract on file. (4) DDD (degenerative disc disease), thoracolumbar: Code(s): M51.35 - Other intervertebral disc degeneration, thoracolumbar region Category: Medical (5) Depression with anxiety: Code(s): F41.8 - Other specified anxiety disorders Category: Medical Plan: Continue sertraline 150 mg daily and lorazepam as needed Cautioned it is sedating and causes drowsiness and she should not drive or operate heavy machinery when she takes this medication. Controlled substance contract on file. (6) Abdominal pain: Code(s): R10.9 - Unspecified abdominal pain Category: Medical Qualifiers: Abdominal location: generalized Qualified Code(s): R10.84 - Generalized abdominal pain Plan: Reviewed CTA results with patient. She was referred to gastro, and she was told today to schedule the consult. Trial of bentyl for possible IBS. Warning signs warranting re-evaluation at the ER reviewed. [place] her diet has helped so she will continue that. (7) Pain in right finger(s): Code(s): M79.644 - Pain in right finger(s) Category: Medical Plan: X-ray ordered. Plan Follow up in 6 weeks. Orders: Orders XR hand RT min 3V Today M79.644 - Pain in right finger(s) Medications: New dicyclomine 10 mg PO QID PRN 60 caps 0RF abdominal pain
[2025-03-23 11:43] VITALS: BP 118/68; PULSE 93; RESP 14; TEMP 36.6; O2SAT 94
--- OUTSIDE RECORDS SUMMARY | 2025-03-23 12:29 | XMS_ITS | Clinical Summary ---
Author Organization [facility] Address [address] [place] [address] Care Team Providers Care Maintenance Department Manager Name Role Phone Hayley Ascencio MD Primary [...] of 2) 07/26/2019 05/31/2019 Influenza Vaccine (#1) 2025 0, 05/31/2019, 06/04/2017, Additional history exists Pneumococcal Vaccine Completed 07/01/2016, 01/14/20 13 Hepatitis B Vaccines Aged Out No long er eligible based on patient's age to complete this topic RSV Ped < 20 months Aged Out No longe r eligible based on patient's age to complete this topic Care Teams Maintenance Department Manager Relationship Specialty Start Date End Date Hayley Ascencio MD PCP - General Internal Medicine 04/21/17
--- OUTSIDE RECORDS SUMMARY | 2025-03-23 12:29 | XMS_ITS | Clinical Summary ---
Author Organization [address] [facility] Address [address] [place] [address] Phone Care Team Providers Care Security Installer Name Role Phone Carolina Coronel Primary Care Provider [phone] Allergies Active Allergy Reactions Criticality Noted Date [...] 01/05/2023 Compression fracture of L4 v ertebra ([facility] V24, [facility] V28) 04/18/2016 Overview (11/16/2024): Dr. FAIRCHILD Disorder of shoulder 12/19/2014 PTSD (post-traumatic stress disorder) 10/04/2013 Depression, major 10/04/2013 Immunizations Name Administration Dates Next Due Influenza [...] Left L4-L5 OTHER SURGICAL HISTORY 1990 PROCEDURE: AR ANES TRANSURETHRAL W/URETHROCYSTOSCOPY NOS; COMMENT: vesicourethroexy- Dr. Holbrook OTHER SURGICAL HISTORY 1969 PROCEDURE: AR BSO W/OMENTECTOMY TRINA&RAD DEBULKING DISSECTION; COMMENT: Right salphingo-oophorectomy, lysis of adhesions OTHER SURGICAL HISTORY 1965 PROCEDURE: HISTORICAL TOTAL HYSTERECTOMY W/O BSO; COMMENT: total wtih Left salpingo-oophorectomy, lysis of adhesions APPENDECTOMY 1965 PROCEDURE: HISTORICAL APPENDECTOMY; COMMENT: Dr. Thomas Jauregui ROTATOR CUFF REPAIR [id number] PROCEDURE: HISTORICAL ROTATOR CUFF REPAIR; COMMENT: Left shoulder Dr Rojo OTHER SURGICAL HISTORY 07/21/13 PROCEDURE: AR ARTHROPLASTY GLENOHUMERAL JOINT TOTAL SHOULDER; COMMENT: Left Dr Rojo SHOULDER SURGERY [id number] Right PROCEDURE: HISTORICAL SHOULDER SURGERY; COMMENT: Dr Rojo- R shoulder arthroplasty BACK SURGERY PROCEDURE: HISTORICAL BACK SURGERY; COMMENT: Exploration of l4-s1 fusion with l3-l4 posterior deompression. BACK SURGERY 05/14/16 PROCEDURE: HISTORICAL BACK SURGERY; COMMENT: Exploration of l3-l4 fusion with l4 kyphoplasty and l3to s1 segmental fixation BREAST BIOPSY PROCEDURE: BX BREAST; PERC NEEDLE CORE W/IMAG GUID; COMMENT: lt. breast [id number] cyst COLONOSCOPY PROCEDURE: HISTORICAL COLONOSCOPY CHOLECYSTECTOMY PROCEDURE: AR LAPAROSCOPY SURG CHOLECYSTECTOMY APPENDECTOMY PROCEDURE: AR APPENDECTOMY HYSTERECTOMY PROCEDURE: HISTORICAL HYSTERECTOMY Medical History [...] 4 lumbar vertebra; COMMENT: Dr. FAIRCHILD A-fib ([facility] V24, [facility] V28) DX:A-fib (HCC) Personal history of malignan t neoplasm of ovary DX:Personal history of [place] neoplasm of ovary Anxiety state DX:Anxiety state [...] Vaccines (3 of 3) 07/26/2019 05/31/2019, 05/31 Falls Risk Assessment 07/29/2022 Medicare Annual Wellness Visit 07/29/2022 Social Influencers of Health Screening 07/29/2022 COVID-19 Vaccine ( season) 2024 08/07/2021, 12/06/2020 Depression Screening 08/31/2024 Influenza Vaccine (#1) 2025 , 08/07/2021, 05/24/2020, Additional history exists Osteoporosis Screening [...] Narrative 07/07/2018 1:41 PM EST BONE DENSITY Lumbar Spine T-score is -1.2 [...] has a prior history of fracture. [facility] Department of Internal Medicine recommends using National [...] patient has a prior history offracture. [facility] Department of Internal Medicine recommendsusing National Osteoporosis [...] Maintenance Insurance [employer] MEDICARE Care Teams Security Installer Relationship Specialty Start Date End Date Carolina Coronel PA [address] [place] [address] PCP - General 08/05/23
--- OUTSIDE RECORDS SUMMARY | 2025-03-23 12:29 | XMS_ITS | Encounter Summary ---
Author Organization [facility] Address [address] [place] [address] [place] [phone] Phone Care Team Providers Care Field Coil Winder Name Role Phone Stacy Olivares MD Primary Care Provider Stacy Olivares MD Primary Care Provider Encounter Details Date Type Department Care Team (Late st Contact Info) Description 06/28/2019 Ancillary Orders Virtual Department [address] [place] [address] Catracho Alvares MD [address] [place] [address], [address] [place] [address] Lesion of right lung Social History Tobacco Use Types Packs/Day Years Used Date Smoking Tobacco: Never Assessed Comments Unknown Sex and Gender Information Value Date Recorded Sex Assigned at Not on file Legal Sex Female 10:38 PM EDT Gender Identity Not on file Sexual Orientation Not on file documented as of this encounter Plan of Treatment Not on file documented as of this encounter Visit Diagnoses Diagnosis Lesion of right lung Other diseases of lung, not elsewhere classified documented in this encounter Care Teams Field Coil Winder Relationship Specialty Start Date End Date Stacy Olivares MD [address] [place] [address] [email or web address] PCP - General 12/01/22 01/06/23 Stacy Olivares MD [address] [place] [address] [email or web address] PCP - General 06/29/23 documented as of this encounter Additional Source Comments The information contained in this document represents components of the legal health record. It is not the complete legal health record.[facility]
== END 2025-03-23 12:12 | disposition home or self-care (01) ==
LOC: HO.HMCFM 11:36
PROVIDERS: PCP Physician Assistant Medical; Visit Provider Physician Assistant Medical
DX: M16.0 Bilateral primary osteoarthritis of hip (principal); M25.551 Pain in right hip; M54.16 Radiculopathy, lumbar region; M51.35 Other intervertebral disc degeneration, thoracolumbar region; F41.8 Other specified anxiety disorders; R10.84 Generalized abdominal pain; M79.644 Pain in right finger(s)

== ENCOUNTER → 2025-03-23 11:36 | Outpatient (BNVA) | payer MEDICARE, SELFPAY | PROVIDERS: PCP Physician Assistant Medical; Visit Provider Physician Assistant Medical | DX: M16.0 Bilateral primary osteoarthritis of hip (principal); M25.551 Pain in right hip; M54.16 Radiculopathy, lumbar region; M51.35 Other intervertebral disc degeneration, thoracolumbar region; F41.8 Other specified anxiety disorders; R10.84 Generalized abdominal pain; M79.644 Pain in right finger(s) | CPT/HCPCS: 99212 ==

== ENCOUNTER 2025-03-27 15:05 | Outpatient (REF) | payer MEDICARE, SELFPAY ==
[2025-03-27 15:13] LABS: Appearance Urine Cloudy; Glucose Urine UA Negative (Negative); PH 5.5 (5.0-9.0); Specific Gravity - Urine 1.010 (1.005-1.025); UMIC TRIGGER UACC YES
[2025-03-27 15:22] LABS: UACC Culture Trigger YES
--- OUTSIDE RECORDS SUMMARY | 2025-03-27 15:34 | XMS_ITS | Clinical Summary ---
Author Organization [facility] Address [address] [place] [address] Care Team Providers Care Underwriting Manager Name Role Phone Hayley Ascencio MD [...] age to complete this topic Care Teams Underwriting Manager Relationship Specialty Start Date End Date Hayley Ascencio MD PCP - General Internal Medicine 04/21/17
--- OUTSIDE RECORDS SUMMARY | 2025-03-27 15:34 | XMS_ITS | Encounter Summary ---
Author Organization [facility] Address [address] [place] [address] [place] [phone] Phone Care Team Providers Care Transportation Department Head Name Role Phone Stacy Olivares MD Primary Care Provider Stacy Olivares MD Primary Care Provider Encounter Details Date Type Department Care Team (Late st Contact Info) Description 06/28/2019 Ancillary Orders Virtual Department [address] [place] [address] Catracho Alvares MD [address] [place] [address], [address] [place] [address] Lesion of right lung Social History Tobacco [...] classified documented in this encounter Care Teams Transportation Department Head Relationship Specialty Start Date End Date Stacy Olivares MD [address] [place] [address] [email or web address] PCP - General 12/01/22 01/06/23 Stacy Olivares MD [address] [place] [address] [email or web address] PCP - General 06/29/23 documented as of this encounter Additional Source Comments The information contained in this document represents components of the legal health record. It is not the complete legal health record.[facility]
--- OUTSIDE RECORDS SUMMARY | 2025-03-27 15:34 | XMS_ITS | Clinical Summary ---
Author Organization [facility] Address [address] [place] [address] Phone Care Team Providers Care Academic Intern Name Role Phone Carolina Coronel Primary Care Provider [phone] Allergies Active Allergy Reactions Criticality Noted Date [...] 01/05/2023 Compression fracture of L4 v ertebra ([facility] V24, [facility] V28) 04/18/2016 Overview (11/16/2024): Dr. FAIRCHILD Disorder [...] Left L4-L5 OTHER SURGICAL HISTORY 1990 PROCEDURE: NV ANES TRANSURETHRAL W/URETHROCYSTOSCOPY NOS; COMMENT: vesicourethroexy- Dr. Holbrook OTHER SURGICAL HISTORY 1969 PROCEDURE: NV BSO W/OMENTECTOMY TRINA&RAD DEBULKING DISSECTION; COMMENT: Right salphingo-oophorectomy, lysis of adhesions OTHER SURGICAL HISTORY 1965 PROCEDURE: HISTORICAL TOTAL HYSTERECTOMY W/O BSO; COMMENT: total wtih Left salpingo-oophorectomy, lysis of adhesions APPENDECTOMY 1965 PROCEDURE: HISTORICAL APPENDECTOMY; COMMENT: Dr. Thomas Jauregui ROTATOR CUFF REPAIR [id number] PROCEDURE: HISTORICAL ROTATOR CUFF REPAIR; COMMENT: Left shoulder Dr Rojo OTHER SURGICAL HISTORY 07/21/13 PROCEDURE: NV ARTHROPLASTY GLENOHUMERAL JOINT TOTAL SHOULDER; COMMENT: Left [...] NEEDLE CORE W/IMAG GUID; COMMENT: lt. breast [id number] cyst COLONOSCOPY PROCEDURE: HISTORICAL COLONOSCOPY CHOLECYSTECTOMY PROCEDURE: NV LAPAROSCOPY SURG CHOLECYSTECTOMY APPENDECTOMY PROCEDURE: NV APPENDECTOMY HYSTERECTOMY PROCEDURE: HISTORICAL HYSTERECTOMY Medical History [...] 4 lumbar vertebra; COMMENT: Dr. FAIRCHILD A-fib ([facility] V24, [facility] V28) DX:A-fib (HCC) Personal history of malignan [...] has a prior history of fracture. [facility] Department of Internal Medicine recommends using National [...] patient has a prior history offracture. [facility] Department of Internal Medicine recommendsusing National Osteoporosis [...] Maintenance Insurance [employer] MED[employer] Care Teams Academic Intern Relationship Specialty Start Date End Date Carolina Coronel PA [address] [place] [address] PCP - General 08/05/23
== END 2025-03-27 15:06 | disposition home or self-care (01) ==
LOC: HO.LNP 15:05
PROVIDERS: Visit Provider Internal Medicine
DX: R30.0 Dysuria (principal); B96.20 Unspecified Escherichia coli [E. coli] as the cause of diseases classified elsewhere
CPT/HCPCS: 81001; 87086; 87088; 87186

== ENCOUNTER 2025-06-05 13:57 | Outpatient (AMB) | payer MEDICARE, SELFPAY ==
--- NOTE | 2025-06-05 13:58 | MHC.OFFVIS ---
Vital Signs 06/05/25 13:59 Height 5 ft 4 in BP 132/74 Blood Pressure Location Lt brachial Position Sitting Pulse 92 Pulse Source Pulse Oximeter Pulse Oximetry (%) 98 Oxygen Delivery Method Room Air Intake Visit Reasons: Hx of papillary thyroid carcinoma Intake Note: New patient present today for Hx of papillary thyroid carcinoma. [employer] Executive Required: No Accompanied by: Self / Same As Patient Allergies amiodarone Allergy (Severe, Verified 06/05/25 14:02) throat swelling latex (Latex) Allergy (Mild, Verified 06/05/25 14:02) HIVES,ITCHING nitroglycerin (Nitroglycerin) Adverse Reaction (Mild, Verified 06/05/25 14:02) LOW BP,DIZZY Medication List - Last Reconciled 06/05/25 by Jailene Collins MD calcium carb,lactat-vitamin D3 200 mg-6.25 mcg (250 unit) tabs PO DAILY dicyclomine 10 mg PO QID PRN levothyroxine 125 mcg PO DAILY lorazepam 0.5 mg PO BID PRN 30 days metronidazole 0.75% 1 appl topical BID multivitamin 1 tab PO DAILY nitrofurantoin monohyd/m-cryst 100 mg (Macrobid) 100 mg PO BID oxycodone 5 mg PO TID PRN 28 days oxycodone ER (OxyContin) 10 mg PO Q12H phenazopyridine (Pyridium) 200 mg PO TID 6 doses sertraline 150 mg PO DAILY sulindac 200 mg PO BID HPI Comments Details: 85 years old female here today for initial evaluation of history thyroid cancer status post total thyroidectomy with reimplantation of left superior parathyroid gland and preservation of the other 3 glands 11/23/[address] Tyler todd at [facility]. 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 AJCC stage I, pT2 N1a. TREY intermediate risk of recurrence. Status post radioactive iodine ablation in December 2018, with structural recurrence in the neck at left level 5 A/2B? Who was then monitored with surveillance ultrasounds. Coming in today to establish care for history of thyroid cancer and postoperative hypothyroidism. History of PTC in detail 2018: Was having compressive sx, found to have thyroid nodules, biopsy showed cancer per patient 11/23/2018: status post total thyroidectomy with reimplantation of left superior parathyroid gland and preservation of the other 3 glands 11/23/[address] Tyler todd at [facility]. 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 AJCC stage I, pT2 N1a. TREY intermediate risk of recurrence. 12/2018: Status post radioactive iodine ablation, posttreatment whole-body scan showed residual activity in the thyroid bed, no evidence of metastatic disease. Postoperatively thyroglobulin and antibody remained elevated. 04/18/2019: Ultrasound neck revealed bilateral cervical lymph nodes with benign characteristics. 05/28/2020: Ultrasound neck no suspicious cervical lymphadenopathy 06/12/2020: Whole-body scan reported no residual thyroid tissue or metastatic disease 11/06/2021: TSH 0.33, free T4 1.23, TG 3.1, TG antibody 92 01/29/2022: Ultrasound neck done at [facility] showed a 7 mm left level 5 suspicious appearing hypoechoic lymph node with additional very size is (7-12 mm) left jugular lymph nodes without fatty hilum, no suspicious lymph nodes in the right lateral neck 02/07/2022: FNA of the 7 mm left level 5 lymph node showed metastatic PTC. 03/03/2022,: Patient saw Dr. Kae Escobedo at [facility] and did an in office ultrasound which showed no residual thyroid tissue in the thyroid bed. Slightly prominent appearing lymph nodes in the left paratracheal area largest measuring 5 mm otherwise no gross cervical lymphadenopathy. Left lateral cervical compartment reveals 7 mm hypoechoic level 2B lymph node which was described as level 5B on the opposite side report close to posterior border of the sternocleidomastoid muscle. No fatty hilum, irregular borders. Several additional nonspecific lymph nodes in the left jugular chain. Nothing suspicious on the right lateral cervical compartment. Patient was seeing Dr. Enriquez at the time, and after mutual discussion with the patient and between Dr. Kae Escobedo and Dr. Enriquez it was decided to monitor with surveillance ultrasounds given minimal disease recurrence. 05/21/2022: CT neck and chest at [facility] showed a 6 mm rounded left mid jugular level 3 lymph node, no cervical lymphadenopathy by CT size criteria, no mediastinal lymphadenopathy or pulmonary metastasis. 10/14/2023: Ultrasound neck no abnormal lymph nodes 08/25/2024: TSH 5.12, free T4 1.29 Reports trouble swallowing since 2019 Voice raspy since surgery On levothyroxine 125 mcg daily Reports tiredness On chronic opiates for back pain No family history of thyroid cancer or endocrine tumors. No personal history of head or neck radiation. Physical exam General: sitting comfortably in no acute distress Neck: supple, symmetrical, Cardiac: normal heart rate Pulm: normal pulmonary effort Abd: not distended, no tenderness Extremities: no edema, no signs of myxedema Laboratory Tests 03/04/24 08/25/24 15:53 15:01 TSH 0.88 5.12 H Free T4 1.29 [facility] Medical History (Updated 03/25/25 @ 20:11 by Erickson Cho MD) Pain in right finger(s) Atherosclerotic vascular disease Abdominal pain Hyponatremia Enteritis Chronic dermatitis Fatigue Depression with anxiety DDD (degenerative disc disease), thoracolumbar Bilateral primary osteoarthritis of hip Abnormal chest CT Heart murmur Chronic abdominal pain Right hip pain Fusion of lumbar spine Renal lesion Recurrent UTI Paroxysmal A-fib Osteoarthritis of hand Major depression, recurrent Lumbar radiculopathy Insomnia Hypothyroidism, postop Hx of papillary thyroid carcinoma Hx of compression fracture of spine Generalized anxiety disorder Esophageal abnormality Dark stools Chronic radicular lumbar pain Chronic prescription opiate use Chronic pain Chronic diarrhea Surgical History History of bilateral knee replacement H/O vertebroplasty Hx of shoulder replacement Status post lumbar surgery Family History Mother Congestive heart failure Father Cancer Brother Congestive heart failure Social History Housing: House Alcohol intake: former Patient Tobacco Use Status: Never used Tobacco e-Cigarette/Vaping Use: Never Used Second Hand Smoke Exposure: No service: No Current occupational status: retired Cognitive needs: No Hearing needs: No Vision needs: No Physical Exam Vital Signs: Last Vital Signs Pulse 92 06/05/25 13:59 BP 132/74 06/05/25 13:59 Pulse Ox 98 06/05/25 13:59 Oxygen Delivery Method Room Air 06/05/25 13:59 Assessment & Plan Assessment & Plan (1) Hx of papillary thyroid carcinoma: Code(s): Z85.850 - Personal history of malignant neoplasm of thyroid Category: Medical Plan: 85 years old female here today for initial evaluation of history thyroid cancer status post total thyroidectomy with reimplantation of left superior parathyroid gland and preservation of the other 3 glands 11/23/[address] Tyler todd at [facility]. 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 AJCC stage I, pT2 N1a. TREY intermediate risk of recurrence. Status post radioactive iodine ablation in December 2018, with structural recurrence in the neck at left level 5 A/2B? Who was then monitored with surveillance ultrasounds. Coming in today to establish care for history of thyroid cancer and postoperative hypothyroidism. This was the patient's initial visit with me and we spent time during the visit reviewing 84 pages of records. Also reviewed her previous ultrasound reports. Her last ultrasound from October 2023 did not show any abnormal lymphadenopathy. Patient has not had any recent neck ultrasound. In the past she has had elevated TG antibody levels as well as a detectable TG level. We will have her repeat tumor markers now. She has also not had any thyroid function since July 2024. She is currently on levothyroxine 125 mcg daily. She reports chronic compressive symptoms. She probably has small volume disease in her neck, and given her age, I would not keep her TSH less than 0.1. Probably would keep it somewhere between 0.1-0.5. As long as her TG levels are stable, and neck ultrasound does not show any progression of disease. Plan: -ordered TSH, free T4, TG and TG antibody levels -continue levothyroxine 125 mcg daily -ordered ultrasound of the neck -follow up in 4 months (2) Hypothyroidism, postop: Code(s): E89.0 - Postprocedural hypothyroidism Category: Medical Plan: She probably has small volume disease in her neck, and given her age, I would not keep her TSH less than 0.1. Probably would keep it somewhere between 0.1-0.5. As long as her TG levels are stable, and neck ultrasound does not show any progression of disease. Plan: -ordered TSH, free T4, TG and TG antibody levels -continue levothyroxine 125 mcg daily Plan I spent 60 minutes in reviewing the record, seeing the patient and documenting in the medical record. Orders: Orders Thyroid Stimulating Hormone Today E89.0 - Postprocedural hypothyroidism, Z85.850 - Personal history of malignant neoplasm of thyroid Free T4 (Free Thyroxine) Today E89.0 - Postprocedural hypothyroidism, Z85.850 - Personal history of malignant neoplasm of thyroid Thyroglobulin Today E89.0 - Postprocedural hypothyroidism, Z85.850 - Personal history of malignant neoplasm of thyroid Thyroglobulin Antibodies Today E89.0 - Postprocedural hypothyroidism, Z85.850 - Personal history of malignant neoplasm of thyroid Thyroglobulin Tumor Marker Today E89.0 - Postprocedural hypothyroidism, Z85.850 - Personal history of malignant neoplasm of thyroid US soft tiss head and/or neck Today E89.0 - Postprocedural hypothyroidism, Z85.850 - Personal history of malignant neoplasm of thyroid Patient Instructions: Do blood work, orders have been placed Do ultrasound of the neck, someone should call you to schedule this Follow up in July 2025 to discuss results Continue levothyroxine 125 mcg daily Coding Level of Care Code New Pt Level 5 (08319) Complex EM visit Add On G2211 Diagnoses Hx of papillary thyroid carcinoma Z85.850 Hypothyroidism, postop E89.0 Time Spent (min) 60
[2025-06-05 13:59] VITALS: BP 132/74; PULSE 92; O2SAT 98
--- OUTSIDE RECORDS SUMMARY | 2025-06-05 16:23 | XMS_ITS | Encounter Summary ---
Author Organization [facility] Address [address] [place] [address] [place] [id number] Phone Care Team Providers Care Gear Inspector Name Role Phone Stacy Olivares MD Primary Care Provider Stacy Olivares MD Primary Care Provider Encounter Details Date Type Department Care Team (Late st Contact Info) Description 06/28/2019 Ancillary Orders Virtual Department [address] [place] [address] Catracho Alvares MD [address] [place] [address], [address] [place] [address] Lesion of right lung Social History Tobacco [...] classified documented in this encounter Care Teams Gear Inspector Relationship Specialty Start Date End Date Stacy Olivares MD [address] [place] [address] [email or web address] PCP - General 12/01/22 01/06/23 Stacy Olivares MD [address] [place] [address] [email or web address] PCP - General 06/29/23 documented as of this encounter Additional Source Comments The information contained in this document represents components of the legal health record. It is not the complete legal health record.[facility]
--- OUTSIDE RECORDS SUMMARY | 2025-06-05 16:24 | XMS_ITS | Clinical Summary ---
Author Organization [facility] Address [address] [place] [address] Phone Care Team Providers Care Remediation Consultant Name Role Phone Carolina Coronel Primary Care Provider [phone] Allergies Active Allergy Reactions Criticality Noted Date [...] 01/05/2023 Compression fracture of L4 v ertebra ([facility] V24, [facility] V28) 04/18/2016 Overview (11/16/2024): Dr. FAIRCHILD Disorder of shoulder 12/19/2014 PTSD (post-traumatic stress disorder) 10/04/2013 Depression, major 10/04/2013 Immunizations Immunization Administration Dates Next Due Influenza trivalent, 0.5mL [...] Left L4-L5 OTHER SURGICAL HISTORY 1990 PROCEDURE: VT ANES TRANSURETHRAL W/URETHROCYSTOSCOPY NOS; COMMENT: vesicourethroexy- Dr. Holbrook OTHER SURGICAL HISTORY 1969 PROCEDURE: VT BSO W/OMENTECTOMY TRINA&RAD DEBULKING DISSECTION; COMMENT: Right salphingo-oophorectomy, lysis of adhesions OTHER SURGICAL HISTORY 1965 PROCEDURE: HISTORICAL TOTAL HYSTERECTOMY W/O BSO; COMMENT: total wtih Left salpingo-oophorectomy, lysis of adhesions APPENDECTOMY 1965 PROCEDURE: HISTORICAL APPENDECTOMY; COMMENT: Dr. Thomas Jauregui ROTATOR CUFF REPAIR [id number] PROCEDURE: HISTORICAL ROTATOR CUFF REPAIR; COMMENT: Left shoulder Dr Rojo OTHER SURGICAL HISTORY 07/21/13 PROCEDURE: VT ARTHROPLASTY GLENOHUMERAL JOINT TOTAL SHOULDER; COMMENT: Left [...] NEEDLE CORE W/IMAG GUID; COMMENT: lt. breast [id number] cyst COLONOSCOPY PROCEDURE: HISTORICAL COLONOSCOPY CHOLECYSTECTOMY PROCEDURE: VT LAPAROSCOPY SURG CHOLECYSTECTOMY APPENDECTOMY PROCEDURE: VT APPENDECTOMY HYSTERECTOMY PROCEDURE: HISTORICAL HYSTERECTOMY Medical History [...] 4 lumbar vertebra; COMMENT: Dr. FAIRCHILD A-fib ([facility] V24, [facility] V28) DX:A-fib (HCC) Personal history of malignan [...] 07/29/2022 Social Influencers of Health Screening 07/29/2022 Depression Screening 08/31/2024 COVID-19 Vaccine (3 - season) 2025 08/07/2021, 12/06/2020 Influenza Vaccine (#1) 2025 , 08/07/2021, 05/24/2020, [...] Maintenance Insurance [employer]IC[employer] Care Teams Remediation Consultant Relationship Specialty Start Date End Date Carolina Coronel PA [address] [place] [address] PCP - General 08/05/23
--- OUTSIDE RECORDS SUMMARY | 2025-06-05 16:24 | XMS_ITS | Clinical Summary ---
Author Organization [facility] Address [address] [place] [address] Care Team Providers Care Claims Sorter Name Role Phone Hayley Ascencio MD Primary [...] age to complete this topic Care Teams Claims Sorter Relationship Specialty Start Date End Date Hayley Ascencio MD PCP - General Internal Medicine 04/21/17
--- OUTSIDE RECORDS SUMMARY | 2025-06-05 16:24 | XMS_ITS | Clinical Summary ---
Author Organization [facility] Address [address] [place] [address] Phone Care Team Providers Care Power Saw Operator Name Role Phone Stacy Olivares MD Primary Care Provider Allergies Active Allergy Reactions Criticality Noted Date Comments Amiodarone Swelling 05/13/2016 Other reaction(s): Anaphelaxis Ciprofloxacin Hcl 09/29/2012 Other reaction(s): Muscle weakness, Myalgia and Joint Pain Gabapentin Nausea And Vomiting 05/09/2009 Other reaction(s): shakes, dizzy, numbness Hydroxyzine 03/07/2022 Latex Rash,Itching,Wheezing High 09/25/2008 Metoprolol Itching 07/01/2016 Naproxen 01/05/2023 Other reaction(s): disoriented Nitroglycerin Hypotension High 09/25/2008 Other reaction(s): Headaches, OTHER blood pressure bottomed out dizziness Other 01/05/2023 Other reaction(s): perfumes, fragrances Silver Low 09/25/2008 Other reaction(s): Rash/Dermatitis Tramadol 06/21/2012 Other reaction(s): takes sertraline CONTRAINDICATION PATIENT ON ZOLOFT Reaction to a current medication Medications metroNIDAZOLE (METROCREAM) 0.75 % cream APPLY TOPICALLY TO THE AFFECTED AREA TWICE DAILY FOR FACIAL RASH 3 Active levothyroxine (SYNTHROID, LEVOTHROID) 137 MCG tabletIndications: Postoperative hypothyroidism 1 tablet orally six days/week, 2 tablets on 7th day, orally 102 tablet 1 3 Active sulindac (CLINORIL) 200 MG tablet Take 1 tablet by mouth 2 (two) times a day. 3 Active sertraline (ZOLOFT) 50 MG tablet Take 1 tablet by mouth daily. 3 Active omeprazole (PRILOSEC) 40 MG capsule Take 1 capsule by mouth every morning. 3 Active hydrOXYzine (ATARAX) 50 MG tablet Take 50 mg by mouth 2 (two) times a day as needed. 3 Active Active Problems Problem Noted Date Diagnosed Date Lumbar radiculopathy 01/05/2023 01/05/2023 Erosive (osteo)arthritis 01/05/2023 023 Overview (01/05/2023): joints Status post total knee replacement 01/05/2023 01/05/2023 Overview (01/05/2023): needs antibiotics prior to dental work. Postoperative hypothyroidism 12/01/201803/2023 Assessment & Plan (01/07/2023 1:32 PM EDT): Will check levels & adjust rx as appropriate. Need to review records to determine target TSH. Papillary thyroid carcinoma 08/26/2018 05/0 03/2023 Assessment & Plan (01/07/2023 1:31 PM EDT): Awaiting records for details. Will check thyroglobulin level. Will determine need for/timing of any further testing (e.g. ultrasound).To call if hasn't heard from me within 1-2 weeks. PSVT (paroxysmal supraventricular tachycardia) 0 05/13/2016 01/05/2023 Compression fracture of L4 vertebra 04/18/2016 01/05/2023 Overview (01/05/2023): Dr. CALLE Depression, major 10/04/2013 01/05/2023 PTSD (post-traumatic stress disorder) 10/04/2013 01/05/2023 Dizziness 07/27/2013 01/05/2023 Social History Tobacco Use Types Packs/Day Years Used Date Smoking Tobacco: Never Assessed Education Answer Date Recorded Are you interested in more education? Not on kilo e 12/26/2022 Are you concerned about learning? Not on file 12/26/2022 No 12/26/2022 No 12/26/2022 Digital Access Answer Date Recorded No 01/26/2023 No 01/26/2023 No 01/26/2023 Reliable internet access at home? Not on file 01/26/2023 Device with a working camera? Not on file Comments Unknown Sex and Gender Information Value Date Recorded Sex Assigned at Not on file Legal Sex Female 10:38 PM EDT Gender Identity Not on file Sexual Orientation Not on file Last Filed Vital Signs Vital Sign Reading Time Taken Comments Blood Pressure 110/68 01/05/2023 2:29 PM EDT Pulse 105 01/05/2023 2:29 PM EDT Temperature - - Respiratory Rate - - Oxygen Saturation - - Inhaled Oxygen Concentration - - Weight - - Height - - Body Mass Index - - Plan of Treatment Health Maintenance Due Date Last Done Comments DEPRESSION SCREENING 1951 OSTEOPOROSIS SCREENING INITIAL (ONE-TIME) 02/24/2004 RSV VACCINE (1 - 1-dose 75+ series) 2014 ZOSTER VACCINES (2 of 2) 07/26/2019 05/31/2019, 05/31 TSH LEVEL 05/21/2024 05/21/2023 INFLUENZA VACCINE (#1) 2025 2, 05/24/2020, 05/31/2019, Additional history exists COVID-19 VACCINE ( - season) 2025 08/07/2021, 12/06/2020 Adult Td,Tdap Booster 12/10/2029 12/11/2019 , 12/11/2019, 01/13/2013, Additional history exists PNEUMOCOCCAL VACCINES (50+ years) Completed 07/01/2016, 01/13/2013, 07/13/2006 HEPATITIS A VACCINES Aged Out No long er eligible based on patient's age to complete this topic HIB VACCINES Aged Out No longer eligi ble based on patient's age to complete this topic MENINGOCOCCAL VACCINES (ACWY) Aged Out No longer eligible based on patient's age to complete this topic MENINGOCOCCAL VACCINES (B) Aged Out N o longer eligible based on patient's age to complete this topic Medical Devices Not on file Procedures Procedure Name Priority Date/Time Associated Diagnosis Comments TSH WITH REFLEX Routine 05/21/2023 4:00 PM EDT Postoperative hypothyroidism from Last 3 Months or Most Recently Relevant to Health Maintenance Results * TSH with reflex (05/21/2023 4:00 PM EDT) Blood Isamar Brewer MD LAB BLOOD ORDERABLES F inal Result EXTERNAL NON-INTERFACED REF LAB from Last 3 Months or Most Recently Relevant to Health Maintenance Insurance MEDICARE REPLACEMENT MEDICARE REPLACEMENT MEDICARE REPLACEMENT MEDICARE REPLACEMENT MEDICARE REPLACEMENT [facility] MEDICARE REPLACEMENT Care Teams Power Saw Operator Relationship Specialty Start Date End Date Stacy Olivares MD [address] [place] [phone] [email or web address] PCP - General 06/29/23 Additional Source Comments The information contained in this document represents components of the legal health record. It is not the complete legal health record.[facility]
== END 2025-06-05 14:52 | disposition home or self-care (01) ==
LOC: HO.ENCR 13:57
PROVIDERS: PCP Physician Assistant Medical; Visit Provider Student in an Organized Health Care Education/Training Program
DX: E89.0 Postprocedural hypothyroidism (principal); Z85.850 Personal history of malignant neoplasm of thyroid
CPT/HCPCS: 99205; G2211

== ENCOUNTER → 2025-06-05 13:57 | Outpatient (BNVA) | payer MEDICARE, SELFPAY | PROVIDERS: PCP Physician Assistant Medical; Visit Provider Student in an Organized Health Care Education/Training Program | DX: E89.0 Postprocedural hypothyroidism (principal); Z85.850 Personal history of malignant neoplasm of thyroid | CPT/HCPCS: 99202 ==

== ENCOUNTER 2025-06-15 10:25 | Outpatient (AMB) | payer MEDICARE, SELFPAY ==
--- NOTE | 2025-06-15 10:29 | MHC.PC.OV ---
Vital Signs 06/15/25 10:35 Height 5 ft 4 in BMI Reason not done Patient refused/unable Pulse 85 Pulse Source Pulse Oximeter Temp 97.7 F Temp Source Temporal Artery Scan Pulse Oximetry (%) 96 Oxygen Delivery Method Room Air Intake Visit Reasons: CPE - see comments Intake Note: Nandini presents in the office today for her annual physical. Allergies amiodarone Allergy (Severe, Verified 06/15/25 10:33) throat swelling latex (Latex) Allergy (Mild, Verified 06/15/25 10:33) HIVES,ITCHING nitroglycerin (Nitroglycerin) Adverse Reaction (Mild, Verified 06/15/25 10:33) LOW BP,DIZZY Medication List - Last Reconciled 06/16/25 by GERALD Ferreira calcium carb,lactat-vitamin D3 200 mg-6.25 mcg (250 unit) tabs PO DAILY cetirizine (Zyrtec) 10 mg PO DAILY PRN dicyclomine 10 mg PO QID PRN famotidine (Pepcid) 20 mg PO BID levothyroxine 125 mcg PO DAILY lorazepam 0.5 mg PO BID PRN 30 days metronidazole 0.75% 1 appl topical BID multivitamin 1 tab PO DAILY oxycodone 5 mg PO TID PRN 28 days oxycodone ER (OxyContin) 10 mg PO Q12H sertraline 150 mg PO DAILY sulfamethoxazole-trimethoprim 800-160 mg 1 tab PO Q12H sulindac 200 mg PO BID Tobacco use date assessed: 06/15/25 Fall risk assessment: No Falls in past year Last assessed Fall Risk: 06/15/25 Dental Screening Dental Screen Date: 06/15/25 Did you have a dental visit in the last 12 months?: Yes Did you have a dental problem in the last 6 months where you did not have access to dental care?: No Was dental information given to patient?: Patient has dentist HPI HPI Comments History of Present Illness Details This is an 84-year-old female with a past medical history of chronic pain, anxiety disorder, papillary thyroid carcinoma, hypothyroidism, insomnia, paroxysmal atrial fibrillation and depression presenting for a physical exam. Last night developed itching and rash on right buttock. Today has itching and rash on arms and legs. Took Benadryl last night which she uses all the time for sleep with temporary improvement last night. No difficulty breathing, facial or oral swelling, dizziness. She did not use any new products at home or try new foods. She was sick last week with a cough, sore throat, diarrhea, chills. Symptoms resolve this past Thursday. Did not test for COVID. Treated with Tylenol but did not use new medications. Patient also contacted the office about UTI symptoms last week. Took 2 doses of nitrofurantoin and stopped it because she did not feel well in general. Still has UTI symptoms. Denies flank pain, vomiting, fevers or chills. Urine has a strong odor and she has frequency and burning with urination. Patient reports she has seen Urogynecology in the past for frequent urinary tract infections. She has had CAT scans within the past year with no evidence of malignancy. She still has not seen Gastroenterology. She canceled the last appointment and needs to reschedule it. Lia is helping somewhat. Previously documented: The patient continues to complain of gastrointestinal symptoms that have been ongoing for at least 6-12 months. As you recall she was seen at the emergency department at [facility] on 09/26/2024 for nausea, diarrhea, dark stools and generalized abdominal pain. She had a CAT scan of the abdomen and pelvis which showed possible enteritis. In the interim she saw my colleague who ordered stool studies and referred the patient back to Gastroenterology. Celiac panel was negative as well as C diff testing. CBC 11/23/24 was normal. She endorses intermittent diarrhea Negative GI PCR panel 12/24/24. Stool negative for occult blood x 01 December 2024. She endorses severe, episodic stomach spasms and abdominal pain and bloating for a few years, and she was previously evaluated for this by GI at [facility]. She had endoscopy and colonoscopy a couple of years ago and prior CAT scans of the abdomen. The oxycodone she takes her chronic pain does help with her symptoms. She tried dairy elimination and gluten elimination without success. Patient had CTA with no evidence of mesenteric ischemia. There was a small splenic artery aneurysm stable from a prior exam in 2022. She alsochronic fullness of right renal collecting system and a 1.4 cm left upper pole hypodensity stable since March 2023, likely a hemorrhagic or proteinaceous cyst. She reports this has been there for many years and she saw urology who did not recommend intervention. Chronic pain-she has a history of 3 back surgeries, bilateral knee replacements and shoulder surgery. She was previously on a controlled substance contract with Dr. Ascencio at [place], and her medications were continued at [facility] primary care before she transferred to [facility]. Current pain regimen: OxyContin 10 mg twice daily (56 tablets per 28 days) Oxycodone 5 mg 3 times a day as needed for breakthrough pain (70 tablets per 28 days) Sulindac 200 mg twice daily as needed for pain. She will supplement with acetaminophen as needed. She had hip x-rays completed on 04/12/2024 which showed moderate right and moderate to severe left hip osteoarthritis. She has chronic bilateral hip pain. Patient had a CT chest March 2024 which demonstrated age indeterminate multilevel compression deformities in the thoracolumbar spine. She has chronic middle and lower back pain. Her average pain level is 10/10 without medication. She had an MRI on 10/27/2024 of the right hip which demonstrated mild anterior superior acetabular chondrosis and no evidence of labral defect. Patient reports she has an appointment scheduled with new [facility] for evaluation, but right now she is prioritizing her lower back. Patient was going to see Dr. Rasheed, but she could not go because she was having GI symptoms that day. Depression with anxiety-previously under the care of a therapist. Treated with sertraline 150 mg daily and lorazepam as needed. She receives 40 tablets per month. Hypothyroidism, history of thyroid cancer-she did keep the appointment with endocrinology, and she has labs and an ultrasound ordered. Declines mammogram, gynecology visit for annual, no longer getting colon cancer screenings due to age. And dental exam is up-to-date. Vaccine recommendations reviewed with the patient. ROS: Constitutional: No unexplained weight loss, fever, chills, or night sweats. +fatigue Eyes: No vision changes, blurry vision, double vision, eye pain, eye redness, eye discharge. ENT: No hearing loss, sneezing, congestion, runny nose or sore throat. Respiratory: No shortness of breath, cough or sputum production. Cardiovascular: No chest pain, chest pressure or chest discomfort. No palpitations or pedal edema. Gastrointestinal: See HPI Genitourinary: See HPI Neurologic: No headache, dizziness, syncope, unilateral weakness, ataxia Musculoskeletal: See HPI Hematologic/Lymphatics: No bleeding or bruising. No painful lymph nodes. Skin: See HPI Endocrine: No cold or heat intolerance. No polyuria or polydipsia. Psychiatric: see HPI .Physical exam: Constitutional: Alert, in no distress. Head: Normocephalic. Eyes: Pupils are equal, round and reactive to light. Extraocular muscles intact. Ear, Nose and Throat: TMs normal. Normal nasal mucosa. No nasal discharge. No oral lesions. Neck: Supple, Full range of motion. No lymphadenopathy. No palpable masses. Respiratory: Clear to auscultation. Cardiovascular: S1 S2 regular. No murmurs. No carotid bruits. Gastrointestinal: Abdomen soft, non-tender, non-distended. Normal bowel sounds. No palpable masses. No rebound or guarding. Genitourinary: No costovertebral angle tenderness. Neurologic: No focal neurological deficits. Skin: Patient has erythematous wheals with some larger lesions on the right elbow and forearm and smaller lesions on the right buttock and legs and 1 on the left side of the neck. Musculoskeletal: Arthritic changes noted bilateral hands.. Extremities: Warm and well perfused. No clubbing, cyanosis or edema. Intact peripheral pulses bilaterally Psychiatric: Normal mood and affect [facility] Medical History (Updated 06/16/25 @ 17:22 by GERALD Ferreira) Urticaria Routine physical examination Pain in right finger(s) Atherosclerotic vascular disease Abdominal pain Hyponatremia Enteritis Chronic dermatitis Fatigue Depression with anxiety DDD (degenerative disc disease), thoracolumbar Bilateral primary osteoarthritis of hip Abnormal chest CT Heart murmur Chronic abdominal pain Right hip pain Fusion of lumbar spine Renal lesion Recurrent UTI Paroxysmal A-fib Osteoarthritis of hand Major depression, recurrent Lumbar radiculopathy Insomnia Hypothyroidism, postop Hx of papillary thyroid carcinoma Hx of compression fracture of spine Generalized anxiety disorder Esophageal abnormality Dark stools Chronic radicular lumbar pain Chronic prescription opiate use Chronic pain Chronic diarrhea Surgical History History of bilateral knee replacement H/O vertebroplasty Hx of shoulder replacement Status post lumbar surgery Family History Mother Congestive heart failure Father Cancer Brother Congestive heart failure Social History (Updated 06/15/25 @ 10:35 by Shirin Avalos CMA) Housing: House Alcohol intake: former Patient Tobacco Use Status: Never used Tobacco e-Cigarette/Vaping Use: Never Used Second Hand Smoke Exposure: No Use of substances other than those prescribed or required for medical reasons: No service: No Current occupational status: retired Cognitive needs: No Hearing needs: No Vision needs: No Questionnaire Thrive Questionnaire Date Thrive assessed: 06/15/25 AUDIT C Alcohol Use Questionnaire (AUDIT-C) 1. How often do you have a drink containing alcohol?: Never 3. How often do you have six or more drinks on one occasion?: Never Total Score: 0 SHEILA-7 AMB Questionnaire SHEILA-7 Date SHEILA - 7 assessed: 06/15/25 Source: Developed by Drs. Ethan Montesinos, Gracie Bautista, Ravinder Brooks and colleagues, with an educational sonali from [employer]. Physical exam (Primary Care) Vital Signs: Last Vital Signs Temp 97.7 F 06/15/25 10:35 Pulse 85 06/15/25 10:35 Pulse Ox 96 06/15/25 10:35 Oxygen Delivery Method Room Air 06/15/25 10:35 Tobacco/Smoking Status: Tobacco use Status Tobacco use date assessed 06/15/25 06/15/25 10:38 Patient Tobacco Use Status Never used Tobacco 06/15/25 10:35 e-Cigarette/Vaping Use Never Used 06/15/25 10:35 Thrive Assessment: Date of Thrive Assessment Date Thrive assessed 06/15/25 06/15/25 10:38 Coding Level of Care Code Est Pt Level 4 (29540) Est Pt Prev Care >65y(37994) Diagnoses Routine physical examination Z00.00 Bilateral primary osteoarthritis of hip M16.0 Right hip pain M25.551 Lumbar radiculopathy M54.16 DDD (degenerative disc disease), thoracolumbar M51.35 Depression with anxiety F41.8 Generalized abdominal pain R10.84 Abdominal location: generalized Urticaria L50.9 Acute UTI N39.0 Assessment & Plan Assessment & Plan (1) Routine physical examination: Code(s): Z00.00 - Encounter for general adult medical examination without abnormal findings Category: Medical Plan: Patient is seen today for a routine physical. As part of this visit we reviewed the following issues, which are considered and essential part of preventative health in this age group: - Blood pressure screening - Cholesterol screening - Osteoporosis prevention including calcium/vitamin D intake, weight bearing exercise & smoking cessation - Nutritional and exercise counseling - Counseling of injury prevention including fire prevention, smoke alarms and seat belt usage - Screening for depression - Prevention of and/or testing for infectious diseases - Education about skin cancer - Recommendations about immunizations - Recommendation of an eye exam - Screening for substance abuse (2) Bilateral primary osteoarthritis of hip: Code(s): M16.0 - Bilateral primary osteoarthritis of hip Category: Medical (3) Right hip pain: Code(s): M25.551 - Pain in right hip Category: Medical (4) Lumbar radiculopathy: Code(s): M54.16 - Radiculopathy, lumbar region Category: Medical Plan: The patient has chronic, multifactorial pain despite interventions in the past including physical therapy and multiple surgeries. I will continue her current medications for pain. Follow up with [facility]. Controlled substance contract on file. (5) DDD (degenerative disc disease), thoracolumbar: Code(s): M51.35 - Other intervertebral disc degeneration, thoracolumbar region Category: Medical (6) Depression with anxiety: Code(s): F41.8 - Other specified anxiety disorders Category: Medical Plan: Continue sertraline 150 mg daily and lorazepam as needed Cautioned it is sedating and causes drowsiness and she should not drive or operate heavy machinery when she takes this medication. Controlled substance contract on file. (7) Abdominal pain: Code(s): R10.9 - Unspecified abdominal pain Category: Medical Qualifiers: Abdominal location: generalized Qualified Code(s): R10.84 - Generalized abdominal pain Plan: She was referred to gastro, and she was told today to schedule the consult. Continue Bentyl which has helped somewhat. Warning signs warranting re-evaluation at the ER reviewed. [place] her diet has helped so she will continue that. (8) Urticaria: Code(s): L50.9 - Urticaria, unspecified Category: Medical Plan: Differential includes viral induced urticaria as she was sick with viral symptoms last week. She has better now. Contact allergen, environmental allergen also considered. She did not eat any new foods or change products. She took 2 doses of nitrofurantoin last week and then stopped it because she did not feel well, but she has taken this in the past without reaction. Deferring prednisone today since symptoms are limited , and she has a UTI. Taking prednisone could worsen infection. Start Pepcid 20 mg twice daily with Zyrtec 10 mg daily and apply topical hydrocortisone twice daily. Call if hives do not respond to this treatment. Warning signs warranting ER evaluation reviewed with the patient. (9) Acute UTI: Code(s): N39.0 - Urinary tract infection, site not specified Plan: Bactrim twice daily with food for 7 days. Warning signs warranting ER evaluation reviewed with the patient. Culture pending. Plan Follow up in 2 weeks for recheck. Orders: Orders Comprehensive Met. Panel 06/15/25 F41.8 - Other specified anxiety disorders, M81.0 - Age-related osteoporosis without current pathological fracture Complete Blood Count no Diff 06/15/25 F41.8 - Other specified anxiety disorders, M81.0 - Age-related osteoporosis without current pathological fracture Lipid Panel 06/15/25 E78.5 - Hyperlipidemia, unspecified, F41.8 - Other specified anxiety disorders, M81.0 - Age-related osteoporosis without current pathological fracture Hemoglobin A1c 06/15/25 F41.8 - Other specified anxiety disorders, M81.0 - Age-related osteoporosis without current pathological fracture, R73.9 - Hyperglycemia, unspecified Medications: New cetirizine (Zyrtec) 10 mg PO DAILY PRN 30 tabs 0RF allergy symptoms famotidine (Pepcid) 20 mg PO BID 60 tabs 0RF sulfamethoxazole-trimethoprim 800-160 mg 1 tab PO Q12H 14 tabs 0RF
[2025-06-15 10:35] VITALS: PULSE 85; TEMP 36.5; O2SAT 96
--- OUTSIDE RECORDS SUMMARY | 2025-06-15 12:53 | XMS_ITS | Clinical Summary ---
Author Organization [facility] Address [address] [place] [address] Care Team Providers Care Watch Dial Maker Name Role Phone Hayley Ascencio MD [...] age to complete this topic Care Teams Watch Dial Maker Relationship Specialty Start Date End Date Hayley Ascencio MD PCP - General Internal Medicine 04/21/17
--- OUTSIDE RECORDS SUMMARY | 2025-06-15 12:53 | XMS_ITS | Encounter Summary ---
Author Organization [facility] Address [address] [place] [address] [place] [id number] Phone Care Team Providers Care Steamfitter Apprentice Name Role Phone Stacy Olivares MD Primary Care Provider Stacy Olivares MD Primary Care Provider Encounter Details Date Type Department Care Team (Late st Contact Info) Description 06/28/2019 Ancillary Orders Virtual Department [address] [place] [address] Catracho Alvares MD [address] [place] [address], [address] [place] [address] Lesion of right lung Social History Tobacco [...] classified documented in this encounter Care Teams Steamfitter Apprentice Relationship Specialty Start Date End Date Stacy Olivares MD [address] [place] [address] [email or web address] PCP - General 12/01/22 01/06/23 Stacy Olivares MD [address] [place] [address] [email or web address] PCP - General 06/29/23 documented as of this encounter Additional Source Comments The information contained in this document represents components of the legal health record. It is not the complete legal health record.[facility]
--- OUTSIDE RECORDS SUMMARY | 2025-06-15 12:53 | XMS_ITS | Clinical Summary ---
Author Organization [facility] Address [address] [place] [address] Phone Care Team Providers Care Lumber Stacker Driver Name Role Phone Carolina Coronel Primary Care Provider [phone] Allergies Active Allergy Reactions Criticality Noted Date [...] 01/05/2023 Compression fracture of L4 v ertebra ([facility] V24, [facility] V28) 04/18/2016 [...] Left L4-L5 OTHER SURGICAL HISTORY 1990 PROCEDURE: [place] ANES TRANSURETHRAL W/URETHROCYSTOSCOPY NOS; COMMENT: vesicourethroexy- Dr. Holbrook OTHER SURGICAL HISTORY 1969 PROCEDURE: FL BSO W/OMENTECTOMY TRINA&RAD DEBULKING DISSECTION; COMMENT: Right salphingo-oophorectomy, lysis of adhesions OTHER SURGICAL HISTORY 1965 PROCEDURE: HISTORICAL TOTAL HYSTERECTOMY W/O BSO; COMMENT: total wtih Left salpingo-oophorectomy, lysis of adhesions APPENDECTOMY 1965 PROCEDURE: HISTORICAL APPENDECTOMY; COMMENT: Dr. Thomas Jauregui ROTATOR CUFF REPAIR [id number] PROCEDURE: HISTORICAL ROTATOR CUFF REPAIR; COMMENT: Left shoulder Dr Rojo OTHER SURGICAL HISTORY 07/21/13 PROCEDURE: FL ARTHROPLASTY GLENOHUMERAL JOINT TOTAL SHOULDER; COMMENT: Left [...] NEEDLE CORE W/IMAG GUID; COMMENT: lt. breast [id number]-[id number] cyst COLONOSCOPY PROCEDURE: HISTORICAL COLONOSCOPY CHOLECYSTECTOMY PROCEDURE: FL LAPAROSCOPY SURG CHOLECYSTECTOMY APPENDECTOMY PROCEDURE: FL APPENDECTOMY HYSTERECTOMY PROCEDURE: HISTORICAL HYSTERECTOMY Medical History [...] 4 lumbar vertebra; COMMENT: Dr. FAIRCHILD A-fib ([facility] V24, [facility] V28) DX:A-fib (HCC) Personal history of malignan [...] has a prior history of fracture. [facility] Department of Internal Medicine recommends using [...] patient has a prior history offracture. [facility] Department of Internal Medicine recommendsusing National [...] Maintenance Insurance [employer] MEDICARE Care Teams Lumber Stacker Driver Relationship Specialty Start Date End Date Carolina Coronel PA [address] [place] [address] PCP - General 08/05/23
--- OUTSIDE RECORDS SUMMARY | 2025-06-15 12:53 | XMS_ITS | Clinical Summary ---
Author Organization [facility] Address [address] [place] [address] Phone Care Team Providers Care Stock Order Lister Name Role Phone Stacy Olivares MD Primary [...] REPLACEMENT MEDICARE REPLACEMENT MEDICARE REPLACEMENT MEDICARE REPLACEMENT [facility] REPLAC[facility] Care Teams Stock Order Lister Relationship Specialty Start Date End Date Stayc Olivares MD [address] [place] [id number] [email or web address] PCP - General 06/29/23 Additional Source Comments The information contained in this document represents components of the legal health record. It is not the complete legal health record.[facility]
== END 2025-06-15 12:39 | disposition home or self-care (01) ==
LOC: HO.HMCFM 10:25
PROVIDERS: PCP Physician Assistant Medical; Visit Provider Physician Assistant Medical
DX: Z00.00 Encounter for general adult medical examination without abnormal findings (principal); L50.9 Urticaria, unspecified; N39.0 Urinary tract infection, site not specified; M16.0 Bilateral primary osteoarthritis of hip; M25.551 Pain in right hip; M54.16 Radiculopathy, lumbar region; M51.35 Other intervertebral disc degeneration, thoracolumbar region; F41.8 Other specified anxiety disorders; R10.84 Generalized abdominal pain

== ENCOUNTER 2025-06-15 10:25 | Outpatient (REF) | payer MEDICARE, SELFPAY ==
[2025-06-15 18:20] LABS: Appearance Urine Turbid; Glucose Urine UA Negative (Negative); PH 6.0 (5.0-9.0); Specific Gravity - Urine 1.010 (1.005-1.025); UMIC TRIGGER UA YES
== END 2025-06-15 10:26 | disposition home or self-care (01) ==
LOC: HO.LNP 10:25
PROVIDERS: PCP Physician Assistant Medical; Visit Provider Physician Assistant Medical
DX: Z00.00 Encounter for general adult medical examination without abnormal findings (principal); R39.9 Unspecified symptoms and signs involving the genitourinary system; M16.0 Bilateral primary osteoarthritis of hip; M25.551 Pain in right hip; M54.16 Radiculopathy, lumbar region; M51.35 Other intervertebral disc degeneration, thoracolumbar region; F41.8 Other specified anxiety disorders; R10.84 Generalized abdominal pain; L50.9 Urticaria, unspecified; N39.0 Urinary tract infection, site not specified; Z79.890 Hormone replacement therapy; Z79.891 Long term (current) use of opiate analgesic; Z79.899 Other long term (current) drug therapy
CPT/HCPCS: 81001; 87086; 87088; 87186; 99212; 99397